=== PATIENT | male | born 1945 | race Caucasian/White ===

== ENCOUNTER 2017-07-19 05:58 | Inpatient (IN) | payer MEDICARE, OTHER ==
[2017-07-19] MEDS ORDERED: Lidocaine 1%/Sod Bicarbonate in NS 8.4% 1 ML Syringe IV PRN (06:00)
[2017-07-19] MEDS ORDERED: Sodium Chloride 0.9% 10 ML Syringe FLUSH PRN (06:00)
[2017-07-19] MEDS ORDERED: Lactated Ringers 1,000 ML IV SCH ×2 (06:00→14:15)
--- NOTE | 2017-07-19 06:14 | PCM.PREANE ---
Preanesthetic Assessment - Anesthesia/Transfusion/Family Hx Anesthesia History: Prior Anesthesia Without Reaction (Colonoscopy only) Family History of Anesthesia Reaction: No Transfusion History: No Prior Transfusion(s) Intubation History: Unknown - Review of Systems General: No Symptoms Pulmonary: No Symptoms (SUSU uses BiPAP, quit smoking 10/2015), Cough Cardiovascular: No Symptoms (History of HTN, history of heart murmur with echocardiogram results noted.), Dyspnea on Exertion Gastrointestinal: No Symptoms (Hiatal hernia, GERD) Neurological: No Symptoms (History of TIA 2 yrs ago.) Other: Reports: None (History of anemia from GI blood loss), Sinus Problem - Physical Assessment NPO Status Date: 07/18/17 NPO Status Time: 21:00 Pulse: 86 O2 Sat by Pulse Oximetry: 95 Respiratory Rate: 20 Blood Pressure: 158/94 Temperature: 37.7 C Height: 1.8 m Weight: 113.852 kg ASA Class: 3 Mental Status: Alert & Oriented x3 Airway Class: Mallampati = 2 Dentition: Reports: Normal Dentition, [place](s), Caries Thyro-Mental Finger Breadths: 3 Mouth Opening Finger Breadths: 3 ROM/Head Extension: Full Lungs: Clear to Auscultation, Normal Respiratory Effort Cardiovascular: Regular Rate, Regular Rhythm (Murmur) - Lab Values: Lab values reviewed and noted and within acceptable ranges to proceed with scheduled procedure. MRSA negative. - Imaging/EKG Impressions: EKG: SR =62, left atrial enlargement, minimal ST elevation , anterior leads CXR: No acute abnormality Echo: EF greater than 75%, mild aortic regurgitation - Allergies Allergies/Adverse Reactions: Allergies Allergy/AdvReac Type Severity Reaction Status Date / Time Penicillins Allergy Rash Verified 11/03/15 08:44 - Anesthesia Plan Pre-Op Medication Ordered: None - Acknowledgements Anesthesia Type Planned: Spinal Pt an Appropriate Candidate for the Planned Anesthesia: Yes Alternatives and Risks of Anesthesia Discussed w Pt/Guardian: Yes Pt/Guardian Understands and Agrees with Anesthesia Plan: Yes PreAnesthesia Questionnaire Other HEENT History: glasses for reading Cardiovascular History: Reports: Heart Murmur, Hypertension Other Cardiovascular History: aortic regurgitation Respiratory History: Reports: Sleep Apnea Other Respiratory History: uses bipap Gastrointestinal History: Reports: Diverticulosis, GI Bleed, Hiatal Hernia, Other (See Below) Other Gastrointestinal History: blood in stool Musculoskeletal History: Reports: Arthritis Neurological History: Reports: Other (See Below) Other Neuro History: 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 , tia's Endocrine/Metabolic History: Reports: Obesity/BMI 30+ Dermatologic History: Reports: Psoriasis - Past Surgical History GI Surgical History: Reports: Colonoscopy, EGD Other GI Surgeries/Procedures: colon polyp, Male Surgical History: Reports: None Other Endocrine Surgeries/Procedures: pancreatic calcification - SUBSTANCE USE Smoking Status *Q: Former Smoker Tobacco Use Within Last Twelve Months: Pipe Recreational Drug Use History: No - HOME MEDS Home Medications: Home Meds Hydrochlorothiazide 25 mg PO DAILY 11/03/15 [History] Aspirin [Halfprin] 81 mg PO DAILY #30 tab.ec 11/04/15 [Rx] Clopidogrel [Plavix] 75 mg PO DAILY #30 tablet 11/04/15 [Rx] Rosuvastatin [Crestor] 10 mg PO BEDTIME #30 tablet 11/04/15 [Rx] - CURRENT (IN HOUSE) MEDS Current Meds: Current Medications Lactated Ringer's (Ringers, Lactated) 1,000 mls @ 125 mls/hr IV ASDIRECTED JOSE ARMANDO Lidocaine/Sodium Bicarbonate (Buffered Lidocaine 1% In Ns 8.4%) 0.25 ml IV ONETIME PRN PRN Reason: Prior to IV Start Sodium Chloride (Saline Flush) 10 ml FLUSH ASDIRECTED PRN PRN Reason: Keep Vein Open
[2017-07-19] MEDS ORDERED: Naloxone 0.4 MG/ML SDV IVPUSH PRN (06:16)
[2017-07-19] MEDS ORDERED: diphenhydrAMINE 50 MG/ML SDV IVPUSH PRN ×2 (06:16→07:33)
[2017-07-19] MEDS ORDERED: Magnesium Hydroxide 400 MG/5 ML Susp 30 ML Cup PO PRN (06:16)
[2017-07-19] MEDS ORDERED: Morphine 2 MG/ML Syringe IVPUSH PRN (06:16)
[2017-07-19] MEDS ORDERED: Sennosides 8.6 MG Tab PO PRN (06:16)
[2017-07-19] MEDS ORDERED: Cyclobenzaprine 10 MG Tab PO PRN (06:16)
[2017-07-19] MEDS ORDERED: Ondansetron 4 MG/2 ML SDV IVPUSH PRN ×2 (06:16→07:33)
[2017-07-19] MEDS ORDERED: Acetaminophen/oxyCODONE 325-5 MG Tab PO PRN (06:16)
[2017-07-19] MEDS ORDERED: Bisacodyl 5 MG Tab PO PRN (06:16)
[2017-07-19] MEDS ORDERED: ceFAZolin 2 GM in Premix Bag 1 BAG IV SCH (06:30)
[2017-07-19] MEDS ORDERED: Morphine PF 10 MG/10 ML SDV ONE (07:01)
[2017-07-19] MEDS ORDERED: ceFAZolin 1 GM Vial ONE (07:14)
[2017-07-19] MEDS ORDERED: Propofol 200 MG/20 ML SDV ONE ×2 (07:14→08:28)
[2017-07-19] MEDS ORDERED: Phenylephrine/Normal Saline 100 MCG/ML 10 ML Syringe ONE (07:14)
[2017-07-19] MEDS ORDERED: Ondansetron 4 MG/2 ML SDV ONE (07:14)
[2017-07-19] MEDS ORDERED: Midazolam 1 MG/ML 2 ML SDV ONE (07:15)
[2017-07-19] MEDS ORDERED: fentaNYL 100 MCG/2 ML SDV ONE (07:16)
[2017-07-19] MEDS ORDERED: Ketamine 500 mg/10 ML MDV ONE (07:16)
[2017-07-19] MEDS ORDERED: ePHEDrine 50 MG/ML SDV IVPUSH PRN (07:33)
[2017-07-19] MEDS ORDERED: fentaNYL 100 MCG/2 ML SDV IVPUSH PRN (07:33)
[2017-07-19] MEDS ORDERED: HYDROmorphone 0.5 MG/0.5 ML Syringe IVPUSH PRN (07:33)
[2017-07-19] MEDS ORDERED: Phenylephrine 1 MG in Sodium Chloride 0.9% 10 ML IV SCH (07:45)
[2017-07-19] MEDS ORDERED: Lactated Ringers 1,000 ML ONE ×2 (07:54)
[2017-07-19] MEDS: ceFAZolin 1 GM Vial ONE ×2 (08:19→08:36)
[2017-07-19] MEDS: Iodine/Sodium Iodide 2% Tincture 30 ML Bottle ONE ×2 (08:19→08:32)
[2017-07-19] MEDS: Morphine 8 MG, EPINEPHrine 0.3 MG, Cefuroxime 750 MG, Ketorolac 30 MG, Sodium Chloride ... ONE ×10 (08:20→08:40)
[2017-07-19] MEDS: Bupivacaine 0.25% 30 ML SDV ONE ×4 (08:20→09:12)
[2017-07-19] MEDS: Triamcinolone Acetonide 40 MG/ML 1 ML MDV ONE ×2 (08:24→09:12)
[2017-07-19] MEDS: Vancomycin 1 GM SDV ONE ×2 (08:24→08:43)
[2017-07-19] MEDS ORDERED: ePHEDrine/Normal Saline 25 MG/5 ML Syringe ONE (08:42)
--- NOTE | 2017-07-19 09:32 | PCM.POSTAN ---
POST ANESTHESIA ASSESSMENT - MENTAL STATUS Mental Status: Alert - VITAL SIGNS Pulse Rate: 78 SaO2: 95 Resp Rate: 12 Blood Pressure: 106/59 Temperature: 36.6 C - RESPIRATORY Respiratory Status: Respiratory Rate WNL, Airway Patent, O2 Saturation Stable, Supplemental Oxygen - CARDIOVASCULAR CV Status: Pulse Rate WNL, Blood Pressure Stable - GASTROINTESTINAL GI Status: No Symptoms - POST OP HYDRATION Hydration Status: Adequate & Stable
--- NOTE | 2017-07-19 10:26 | CR ---
Right knee: AP and lateral views of the right knee were obtained. Comparison: No previous right knee exam. Knee prosthesis is seen. Components are aligned. Soft tissue air is noted from the surgical procedure. Underlying bony structures are intact. Impression: 1. Satisfactory radiographic appearance of recently placed right knee prosthesis. Diagnostic code #2
[2017-07-19] MEDS ORDERED: RANITIDINE HCL PO PRN (10:43)
[2017-07-19] MEDS: Famotidine 20 MG Tab PO SCH ×2 (11:51→17:59)
--- NOTE | 2017-07-19 13:44 | PCM.CONSN ---
- General Info Date of Service: 07/19/17 Admission Dx/Problem (Free Text): Abe is a 71-year-old male status post right total knee arthroplasty with Dr. Montano this morning. He is doing well thus far. He has no complaints of pain. No nausea. He is tired and has been sleeping since arriving back to the floor. No other complaints or concerns. Past medical history significant for hypertension heart murmur by history recent echo shows ejection fraction greater than 75% with mild aortic regurgitation, os obstructive sleep apnea and uses a BiPAP, GERD with hiatal hernia, history of TIA 2 years ago on Plavix, history of GI bleed with anemia, history of tobacco use quit smoking in October 2015. Hospitalist service is consulted for postoperative medical management. Patient is full CODE STATUS Functional Status: Reports: Pain Controlled, Tolerating Diet, Urinating (kohler cath), Incentive Spirometry. Denies: Ambulating (not yet) - Review of Systems General: Reports: No Symptoms HEENT: Reports: No Symptoms Pulmonary: Reports: No Symptoms Cardiovascular: Reports: No Symptoms Gastrointestinal: Reports: No Symptoms Genitourinary: Reports: No Symptoms Musculoskeletal: Reports: No Symptoms Skin: Reports: No Symptoms Neurological: Reports: No Symptoms Psychiatric: Reports: No Symptoms - Patient Data Vitals - Most Recent: Last Vital Signs Temp 98.0 F 07/19/17 10:23 Pulse 75 07/19/17 12:02 Resp 13 07/19/17 10:23 BP 130/74 07/19/17 12:02 Pulse Ox 93 L 07/19/17 12:02 Weight - Most Recent: 251 lb I&O - Last 24 Hours: Intake & Output 07/18/17 07/19/17 07/19/17 22:59 06:59 14:59 Intake Total 150 Output Total 200 Balance -50 Lab Results Last 24 Hours: Laboratory Results - last 24 hr 07/19/17 07/19/17 07/19/17 Range/Units 06:29 06:29 06:29 Hgb 12.9 L (13.7-17.5) gm/L PT 10.2 (8.0-13.0) SECONDS INR 0.94 APTT 27 (22-36) SECONDS Med Orders - Current: Current Medications Aspirin (Ecotrin) 325 mg PO BID JOSE ARMANDO Bisacodyl (Dulcolax) 5 mg PO DAILY PRN PRN Reason: Constipation Cholecalciferol (Vitamin D3) 5,000 units PO DAILY [facility] Clopidogrel Bisulfate (Plavix) 75 mg PO DAILY [facility] Cyclobenzaprine HCl (Flexeril) 10 mg PO TID PRN PRN Reason: Spasms Diphenhydramine HCl (Benadryl) 25 mg IVPUSH Q4H PRN PRN Reason: Nausea Diphenhydramine HCl (Benadryl) 25 mg IVPUSH Q6H PRN PRN Reason: pruritis Stop: 07/19/17 18:00 Docusate Sodium (Colace) 100 mg PO BID [facility] Famotidine (Pepcid) 20 mg PO Q12H [facility] [place] Last Admin: 07/19/17 11:51 Dose: Not Given Ferrous Sulfate (Ferrous Sulfate) 325 mg PO DAILY [facility] [place] Hydrochlorothiazide (Hydrochlorothiazide) 25 mg PO DAILY [facility] [place] Hydromorphone HCl (Dilaudid) 0.5 mg IVPUSH Q15M PRN PRN Reason: severe pain Stop: 07/19/17 18:00 Cefazolin Sodium/Dextrose 2 gm (/ Premix) 50 mls @ 100 mls/hr IV Q8H [facility] [place] Stop: 07/20/17 07:44 Magnesium Hydroxide (Milk Of Magnesia) 30 ml PO BID PRN PRN Reason: Constipation Morphine Sulfate (Morphine) 2 mg IVPUSH Q2H PRN PRN Reason: Breakthrough Pain Naloxone HCl (Narcan) 0.1 mg IVPUSH Q5M PRN PRN Reason: Oversedation Non-Formulary Medication (Mesalamine) 1,000 mg PO QID [facility] [place] Ondansetron HCl (Zofran) 4 mg IVPUSH Q6H PRN PRN Reason: Nausea/Vomiting Ondansetron HCl (Zofran) 4 mg IVPUSH ONETIME PRN PRN Reason: Nausea/Vomiting Stop: 07/19/17 18:00 Oxycodone/Acetaminophen (Percocet 325-5 Mg) 1 - 2 tab PO Q4H PRN PRN Reason: Pain Senna (Senna) 8.6 mg PO BID PRN PRN Reason: Constipation Sodium Chloride (Saline Flush) 10 ml FLUSH ASDIRECTED PRN PRN Reason: Keep Vein Open Discontinued Medications Bupivacaine HCl (Marcaine 0.25%) Confirm Administered Dose 30 ml .ROUTE .STK- MED ONE Stop: 07/19/17 06:27 Last Admin: 07/19/17 09:12 Dose: 4 ml Cefazolin Sodium (Ancef) Confirm Administered Dose 2 gm .ROUTE .STK-MED ONE Stop: 07/19/17 06:31 Last Admin: 07/19/17 08:36 Dose: 2 gm Cefazolin Sodium (Ancef) Confirm Administered Dose 2 gm .ROUTE .STK-MED ONE Stop: 07/19/17 07:15 Morphine Sulfate 8 mg/Epinephrine HCl 0.3 mg/Cefuroxime Sodium 750 mg/Ketorolac Tromethamine 30 mg/Sodium Chloride 27.9 ml 0 mg .XX ONETIME ONE Stop: 07/19/17 06:16 Last Admin: 07/19/17 08:40 Dose: 788.3 mg Ephedrine Sulfate (Ephedrine Sulfate) 5 mg IVPUSH ASDIRECTED PRN PRN Reason: Hypotension Stop: 07/19/17 18:00 Ephedrine Sulfate (Ephedrine In Ns) Confirm Administered Dose 25 mg .ROUTE .STK- MED ONE Stop: 07/19/17 08:43 Fentanyl (Sublimaze) Confirm Administered Dose 100 mcg .ROUTE .STK-MED ONE Stop: 07/19/17 07:17 Fentanyl (Sublimaze) 50 mcg IVPUSH Q5M PRN PRN Reason: Pain Stop: 07/19/17 18:00 Lactated Ringer's (Ringers, Lactated) 1,000 mls @ 125 mls/hr IV ASDIRECTED [facility] [place] Last Admin: 07/19/17 06:25 Dose: 125 mls/hr Cefazolin Sodium/Dextrose 2 gm (/ Premix) 50 mls @ 100 mls/hr IV Q8H [facility] [place] Stop: 07/19/17 22:59 Last Admin: 07/19/17 11:52 Dose: Not Given Lidocaine HCl (Xylocaine-Mpf 1%) Confirm Administered Dose 10 mls @ as directed .ROUTE .STK-MED ONE Stop: 07/19/17 07:15 Phenylephrine HCl 1 mg/ Sodium (Chloride) 10.1 mls @ 1 mls/sec IV TITRATE JOSE ARMANDO PRN Reason: Protocol Stop: 07/19/17 18:00 Lactated Ringer's (Ringers, Lactated) Confirm Administered Dose 1,000 mls @ as directed .ROUTE .STK-MED ONE Stop: 07/19/17 07:55 Lactated Ringer's (Ringers, Lactated) Confirm Administered Dose 1,000 mls @ as directed .ROUTE .STK-MED ONE Stop: 07/19/17 07:55 Iodine (Iodine 2% Mild Tincture) Confirm Administered Dose 30 ml .ROUTE .STK- MED ONE Stop: 07/19/17 06:30 Last Admin: 07/19/17 08:32 Dose: 18 ml Ketamine HCl (Ketalar) Confirm Administered Dose 500 mg .ROUTE .STK-MED ONE Stop: 07/19/17 07:17 Lidocaine/Sodium Bicarbonate (Buffered Lidocaine 1% In Ns 8.4%) 0.25 ml IV ONETIME PRN PRN Reason: Prior to IV Start Last Admin: 07/19/17 06:24 Dose: 0.25 ml Midazolam HCl (Versed 1 Mg/Ml) Confirm Administered Dose 2 mg .ROUTE .STK-MED ONE Stop: 07/19/17 07:16 Morphine Sulfate (Duramorph Pf) Confirm Administered Dose 10 mg .ROUTE .STK-MED ONE Stop: 07/19/17 07:02 Non-Formulary Medication (Cholecalciferol (Vitamin D3) [Vitamin D]) 1 tab PO DAILY JOSE ARMANDO Non-Formulary Medication (Ranitidine Hcl) 1 tab PO ASDIRECTED PRN PRN Reason: Heartburn Ondansetron HCl (Zofran) Confirm Administered Dose 4 mg .ROUTE .STK-MED ONE Stop: 07/19/17 07:15 Phenylephrine HCl (Phenylephrine In Ns 100 Mcg/Ml) Confirm Administered Dose 1 mg .ROUTE .STK-MED ONE Stop: 07/19/17 07:15 Propofol (Diprivan 20 Ml) Confirm Administered Dose 400 mg .ROUTE .STK-MED ONE Stop: 07/19/17 07:15 Propofol (Diprivan 20 Ml) Confirm Administered Dose 200 mg .ROUTE .STK-MED ONE Stop: 07/19/17 08:29 Tranexamic Acid (Cyklokapron) Confirm Administered Dose 1,000 mg .ROUTE .STK- MED ONE Stop: 07/19/17 06:30 Last Admin: 07/19/17 08:55 Dose: 1,000 mg Triamcinolone Acetonide (Kenalog-40) Confirm Administered Dose 80 mg .ROUTE .STK -MED ONE Stop: 07/19/17 06:38 Last Admin: 07/19/17 09:12 Dose: 80 mg Vancomycin HCl (Vancomycin) Confirm Administered Dose 1 gm .ROUTE .STK-MED ONE Stop: 07/19/17 06:30 Last Admin: 07/19/17 08:43 Dose: 1 gm - Exam Quality Assessment: DVT Prophylaxis General: Alert, Oriented, Cooperative, No Acute Distress HEENT: Pupils Equal, EOMI, Mucous Membr. Moist/[place] Neck: Supple Lungs: Clear to Auscultation, Normal Respiratory Effort Cardiovascular: Regular Rate, Regular Rhythm GI/Abdominal Exam: Normal Bowel Sounds, Soft, Non-Tender (Male) Exam: Deferred Extremities: Normal Capillary Refill, Other (meron wrap to rt LE; CMS + and = bilat, slight decreased sensation bilaterally d/t spinal still in effect) Peripheral Pulses: 2+: Dorsalis Pedis (L), Dorsalis Pedis (R) Neurological: No New Focal Deficit Psy/Mental Status: Alert, Normal Affect, Normal Mood Consult PN Assessment/Plan POD#: 0 Procedures: Procedures ASSAY OF TROPONIN QUANT (11/03/15) C DIFF AMPLIFIED PROBE (11/06/16) C-REACTIVE PROTEIN (11/04/16) COMPLETE CBC W/AUTO DIFF WBC (11/04/16) COMPREHEN METABOLIC PANEL (11/04/16) CRYPTOSPORIDIUM AG IA (11/06/16) EXTRACRANIAL BILAT STUDY (11/03/15) GIARDIA AG IA (11/06/16) HEPATOBIL SYST IMAGE W/DRUG (01/21/16) LACTOFERRIN FECAL (QUAL) (11/06/16) LIPID PANEL (11/03/15) MR-STAPH DNA AMP PROBE (07/05/17) OT EVALUATION (11/03/15) PT EVALUATION (11/03/15) ROUTINE VENIPUNCTURE (11/04/16) SPECIMEN FAT STAIN (11/06/16) STOOL CULTR AEROBIC BACT EA (11/06/16) TB TEST CELL IMMUN MEASURE (01/02/16) US EXAM ABDO BACK WALL COMP (11/03/15) (1) S/P total knee arthroplasty SNOMED Code(s): 1696105926972, 1783898440735 Code(s): Z96.659 - PRESENCE OF UNSPECIFIED ARTIFICIAL KNEE JOINT Priority: High Current Visit: Yes Qualifiers: Laterality: right Qualified Code(s): Z96.651 - Presence of right artificial knee joint (2) Osteoarthritis SNOMED Code(s): 076956117 Code(s): M19.90 - UNSPECIFIED OSTEOARTHRITIS, UNSPECIFIED SITE Priority: High Current Visit: Yes Qualifiers: Osteoarthritis location: knee Osteoarthritis type: primary Laterality: right Qualified Code(s): M17.11 - Unilateral primary osteoarthritis, right knee (3) HTN (hypertension) SNOMED Code(s): 17997454 Code(s): I10 - ESSENTIAL (PRIMARY) HYPERTENSION Priority: Medium Current Visit: Yes Qualifiers: Hypertension type: essential hypertension Qualified Code(s): I10 - Essential (primary) hypertension (4) SUSU treated with BiPAP SNOMED Code(s): 31018353 Code(s): G47.33 - OBSTRUCTIVE SLEEP APNEA (ADULT) (PEDIATRIC) Priority: Medium Current Visit: Yes (5) GERD (gastroesophageal reflux disease) SNOMED Code(s): 255005066 Code(s): K21.9 - GASTRO-ESOPHAGEAL REFLUX DISEASE WITHOUT ESOPHAGITIS Priority: Medium Current Visit: No Qualifiers: Esophagitis presence: esophagitis presence not specified Qualified Code(s) : K21.9 - Gastro-esophageal reflux disease without esophagitis (6) Heart murmur SNOMED Code(s): 28013302 Code(s): R01.1 - CARDIAC MURMUR, UNSPECIFIED Priority: Medium Current Visit: No (7) History of GI bleed SNOMED Code(s): 516996750 Code(s): Z87.19 - PERSONAL HISTORY OF OTHER DISEASES OF THE DIGESTIVE SYSTEM Priority: Medium Current Visit: No (8) Hx-TIA (transient ischemic attack) SNOMED Code(s): 959109532 Code(s): Z86.73 - PRSNL HX OF TIA (TIA), AND CEREB INFRC W/O RESID DEFICITS Priority: Medium Current Visit: No (9) History of tobacco use SNOMED Code(s): 1563535126614 Code(s): Z87.891 - PERSONAL HISTORY OF NICOTINE DEPENDENCE Priority: Medium Current Visit: No (10) Psoriasis SNOMED Code(s): 2389322 Code(s): L40.9 - PSORIASIS, UNSPECIFIED Priority: Medium Current Visit: No Problem List Initiated/Reviewed/Updated: Yes Plan: I/P: S/P total knee arthroplasty, POD # 0, Dr. Montano - Pain management and DVT prophylax - PT/OT - RT/IS - Hgb preoperatively is 12.9. We'll follow postoperative labs Chronic conditions: Hypertension, continue home meds, stable Obstructive sleep apnea will use home BiPAP History of heart murmur recent evaluation with echo see history of present illness GERD with hiatal hernia history GI prophylaxis with Pepcid twice a day History of anemia with GI bleed, GI prophylax as above History of TIA 2 years ago, on Plavix will plan to continue Plavix starting tomorrow morning History of tobacco use quit in 2016 Other: GI Prophylax CM/SW for DC planning Patient is full Code status. Chart reviewed- reviewed anesthesia notes. Time of consult: [address] Montano of consult. Thank you for allowing us to participate in this patient's POC.
[2017-07-19] MEDS: ceFAZolin 2 GM in Premix Bag 1 BAG IV SCH ×2 (15:08→23:10)
[2017-07-19] MEDS: MESALAMINE 500 MG PO SCH ×2 (17:48→20:37)
[2017-07-19] MEDS: Docusate Sodium 100 MG Cap PO SCH (20:38)
[2017-07-20] MEDS: Famotidine 20 MG Tab PO SCH (08:15)
[2017-07-20] MEDS: Docusate Sodium 100 MG Cap PO SCH (08:16)
[2017-07-20] MEDS: MESALAMINE 500 MG PO SCH ×2 (08:18→12:32)
[2017-07-20] MEDS: ceFAZolin 2 GM in Premix Bag 1 BAG IV SCH (08:18)
[2017-07-20] MEDS ORDERED: HYDROCHLOROTHIAZIDE 25 MG PO SCH (09:00)
[2017-07-20] MEDS ORDERED: CHOLECALCIFEROL PO SCH ×2 (09:00)
[2017-07-20] MEDS ORDERED: Ferrous Sulfate 325 MG Tab PO SCH (09:00)
[2017-07-20] MEDS ORDERED: Aspirin 325 MG Tab.EC PO SCH (09:00)
[2017-07-20] MEDS ORDERED: CLOPIDOGREL 75 MG PO SCH (09:00)
[2017-07-20] MEDS ORDERED: Acetaminophen 325 MG Tab PO PRN (09:06)
[2017-07-20 09:14] VITALS: BP 111/62
--- NOTE | 2017-07-20 12:32 | PCM.CONSN ---
- General Info Date of Service: 07/20/17 Admission Dx/Problem (Free Text): S/P Rt TKA with Dr. Montano, POD #1 Doing well, no pain, no n/v, tolerating meals. Voiding. Ready for DC home today. Functional Status: Reports: Pain Controlled, Tolerating Diet, Ambulating, Urinating, Incentive Spirometry. Denies: New Symptoms - Review of Systems General: Reports: No Symptoms HEENT: Reports: No Symptoms Pulmonary: Reports: No Symptoms Cardiovascular: Reports: No Symptoms Gastrointestinal: Reports: No Symptoms Genitourinary: Reports: No Symptoms Musculoskeletal: Reports: Leg Pain Skin: Reports: No Symptoms Neurological: Reports: No Symptoms Psychiatric: Reports: No Symptoms - Patient Data Vitals - Most Recent: Last Vital Signs Temp 99.3 F 07/20/17 11:12 Pulse 99 07/20/17 08:18 Resp 16 07/20/17 08:18 BP 111/62 07/20/17 08:18 Pulse Ox 89 L 07/20/17 08:18 Weight - Most Recent: 251 lb I&O - Last 24 Hours: Intake & Output 07/19/17 07/20/17 07/20/17 22:59 06:59 14:59 Intake Total 1090 170 Output Total 200 Balance 890 170 Lab Results Last 24 Hours: Laboratory Results - last 24 hr 07/20/17 07/20/17 Range/Units 07:00 07:00 WBC 16.39 H (4.23-9.07) K/mm3 RBC 4.32 L (4.63-6.08) M/mm3 Hgb 11.2 L (13.7-17.5) gm/L Hct 35.2 L (40.1-51.0) % MCV 81.5 (79.0-92.2) fl MCH 25.9 (25.7-32.2) pg MCHC 31.8 L (32.2-35.5) g/dl RDW Std Deviation 57.0 H (35.1-43.9) fL Plt Count 265 (163-337) K/mm3 MPV 10.3 (9.4-12.3) fl Sodium 141 (136-145) mEq/L Potassium 4.0 (3.5-5.1) mEq/L Chloride 105 (98-107) mEq/L Carbon Dioxide 25 (21-32) mEq/L Anion Gap 15.0 (5-15) BUN 27 H (7-18) mg/dL Creatinine 1.6 H (0.7-1.3) mg/dL Est Cr Clr Drug Dosing 45.76 mL/min Estimated GFR (MDRD) 43 (>60) mL/min BUN/Creatinine Ratio 16.9 (14-18) Glucose 147 H (80-115) mg/dL Calcium 8.5 (8.5-10.1) mg/dL Total Bilirubin 0.5 (0.2-1.0) mg/dL AST 19 (15-37) U/L ALT 32 (16-63) U/L Alkaline Phosphatase 39 L (46-116) U/L Total Protein 6.2 L (6.4-8.2) g/dl Albumin 3.0 L (3.4-5.0) g/dl Globulin 3.2 gm/dL Albumin/Globulin Ratio 0.9 L (1-2) Med Orders - Current: Current Medications Acetaminophen (Tylenol) 975 mg PO Q8H PRN PRN Reason: Pain Last Admin: 07/20/17 09:52 Dose: 975 mg Aspirin (Ecotrin) 325 mg PO BID [facility] Last Admin: 07/20/17 08:15 Dose: 325 mg Bisacodyl (Dulcolax) 5 mg PO DAILY PRN PRN Reason: Constipation Cyclobenzaprine HCl (Flexeril) 10 mg PO TID PRN PRN Reason: Spasms Diphenhydramine HCl (Benadryl) 25 mg IVPUSH Q4H PRN PRN Reason: Nausea Docusate Sodium (Colace) 100 mg PO BID [facility] Last Admin: 07/20/17 08:16 Dose: 100 mg Famotidine (Pepcid) 20 mg PO Q12H [facility] Last Admin: 07/20/17 08:15 Dose: 20 mg Ferrous Sulfate (Ferrous Sulfate) 325 mg PO DAILY [facility] Last Admin: 07/20/17 08:16 Dose: 325 mg Lactated Ringer's (Ringers, Lactated) 1,000 mls @ 500 mls/hr IV ASDIRECTED [facility] Last Admin: 07/19/17 14:33 Dose: 500 mls/hr Magnesium Hydroxide (Milk Of Magnesia) 30 ml PO BID PRN PRN Reason: Constipation Morphine Sulfate (Morphine) 2 mg IVPUSH Q2H PRN PRN Reason: Breakthrough Pain Naloxone HCl (Narcan) 0.1 mg IVPUSH Q5M PRN PRN Reason: Oversedation Ondansetron HCl (Zofran) 4 mg IVPUSH Q6H PRN PRN Reason: Nausea/Vomiting Oxycodone/Acetaminophen (Percocet 325-5 Mg) 1 - 2 tab PO Q4H PRN PRN Reason: Pain Clopidrogrel 75mg ( (Patient's Own Med)) 1 each PO DAILY [facility] Last Admin: 07/20/17 08:18 Dose: 1 each Hydrochlorothiazide 25mg (Patient's Own Med) 1 each PO DAILY [facility] Last Admin: 07/20/17 08:18 Dose: 1 each Mesalamine (Pentasa) (500mg) 2 each PO QID [facility] Last Admin: 07/20/17 08:18 Dose: 2 each Cholecalciferol 5000units/Capsule ( Patients Own) 1 each PO DAILY [facility] Last Admin: 07/20/17 08:18 Dose: 1 each Senna (Senna) 8.6 mg PO BID PRN PRN Reason: Constipation Sodium Chloride (Saline Flush) 10 ml FLUSH ASDIRECTED PRN PRN Reason: Keep Vein Open Discontinued Medications Bupivacaine HCl (Marcaine 0.25%) Confirm Administered Dose 30 ml .ROUTE .STK- MED ONE Stop: 07/19/17 06:27 Last Admin: 07/19/17 09:12 Dose: 4 ml Cefazolin Sodium (Ancef) Confirm Administered Dose 2 gm .ROUTE .STK-MED ONE Stop: 07/19/17 06:31 Last Admin: 07/19/17 08:36 Dose: 2 gm Cefazolin Sodium (Ancef) Confirm Administered Dose 2 gm .ROUTE .STK-MED ONE Stop: 07/19/17 07:15 Morphine Sulfate 8 mg/Epinephrine HCl 0.3 mg/Cefuroxime Sodium 750 mg/Ketorolac Tromethamine 30 mg/Sodium Chloride 27.9 ml 0 mg .XX ONETIME ONE Stop: 07/19/17 06:16 Last Admin: 07/19/17 08:40 Dose: 788.3 mg Diphenhydramine HCl (Benadryl) 25 mg IVPUSH Q6H PRN PRN Reason: pruritis Stop: 07/19/17 18:00 Ephedrine Sulfate (Ephedrine Sulfate) 5 mg IVPUSH ASDIRECTED PRN PRN Reason: Hypotension Stop: 07/19/17 18:00 Ephedrine Sulfate (Ephedrine In Ns) Confirm Administered Dose 25 mg .ROUTE .STK- MED ONE Stop: 07/19/17 08:43 Fentanyl (Sublimaze) Confirm Administered Dose 100 mcg .ROUTE .STK-MED ONE Stop: 07/19/17 07:17 Fentanyl (Sublimaze) 50 mcg IVPUSH Q5M PRN PRN Reason: Pain Stop: 07/19/17 18:00 Hydromorphone HCl (Dilaudid) 0.5 mg IVPUSH Q15M PRN PRN Reason: severe pain Stop: 07/19/17 18:00 Lactated Ringer's (Ringers, Lactated) 1,000 mls @ 125 mls/hr IV ASDIRECTED [facility] Last Admin: 07/19/17 06:25 Dose: 125 mls/hr Cefazolin Sodium/Dextrose 2 gm (/ Premix) 50 mls @ 100 mls/hr IV Q8H [facility] Stop: 07/19/17 22:59 Last Admin: 07/19/17 11:52 Dose: Not Given Lidocaine HCl (Xylocaine-Mpf 1%) Confirm Administered Dose 10 mls @ as directed .ROUTE .STK-MED ONE Stop: 07/19/17 07:15 Phenylephrine HCl 1 mg/ Sodium (Chloride) 10.1 mls @ 1 mls/sec IV TITRATE [facility] PRN Reason: Protocol Stop: 07/19/17 18:00 Lactated Ringer's (Ringers, Lactated) Confirm Administered Dose 1,000 mls @ as directed .ROUTE .STK-MED ONE Stop: 07/19/17 07:55 Lactated Ringer's (Ringers, Lactated) Confirm Administered Dose 1,000 mls @ as directed .ROUTE .STK-MED ONE Stop: 07/19/17 07:55 Cefazolin Sodium/Dextrose 2 gm (/ Premix) 50 mls @ 100 mls/hr IV Q8H [facility] Stop: 07/20/17 07:44 Last Admin: 07/20/17 08:18 Dose: 100 mls/hr Iodine (Iodine 2% Mild Tincture) Confirm Administered Dose 30 ml .ROUTE .STK- MED ONE Stop: 07/19/17 06:30 Last Admin: 07/19/17 08:32 Dose: 18 ml Ketamine HCl (Ketalar) Confirm Administered Dose 500 mg .ROUTE .STK-MED ONE Stop: 07/19/17 07:17 Lidocaine/Sodium Bicarbonate (Buffered Lidocaine 1% In Ns 8.4%) 0.25 ml IV ONETIME PRN PRN Reason: Prior to IV Start Last Admin: 07/19/17 06:24 Dose: 0.25 ml Midazolam HCl (Versed 1 Mg/Ml) Confirm Administered Dose 2 mg .ROUTE .STK-MED ONE Stop: 07/19/17 07:16 Morphine Sulfate (Duramorph Pf) Confirm Administered Dose 10 mg .ROUTE .STK-MED ONE Stop: 07/19/17 07:02 Non-Formulary Medication (Cholecalciferol (Vitamin D3) [Vitamin D]) 1 tab PO DAILY [facility] Non-Formulary Medication (Ranitidine Hcl) 1 tab PO ASDIRECTED PRN PRN Reason: Heartburn Ondansetron HCl (Zofran) Confirm Administered Dose 4 mg .ROUTE .STK-MED ONE Stop: 07/19/17 07:15 Ondansetron HCl (Zofran) 4 mg IVPUSH ONETIME PRN PRN Reason: Nausea/Vomiting Stop: 07/19/17 18:00 Phenylephrine HCl (Phenylephrine In Ns 100 Mcg/Ml) Confirm Administered Dose 1 mg .ROUTE .STK-MED ONE Stop: 07/19/17 07:15 Propofol (Diprivan 20 Ml) Confirm Administered Dose 400 mg .ROUTE .STK-MED ONE Stop: 07/19/17 07:15 Propofol (Diprivan 20 Ml) Confirm Administered Dose 200 mg .ROUTE .STK-MED ONE Stop: 07/19/17 08:29 Tranexamic Acid (Cyklokapron) Confirm Administered Dose 1,000 mg .ROUTE .STK- MED ONE Stop: 07/19/17 06:30 Last Admin: 07/19/17 08:55 Dose: 1,000 mg Triamcinolone Acetonide (Kenalog-40) Confirm Administered Dose 80 mg .ROUTE .STK -MED ONE Stop: 07/19/17 06:38 Last Admin: 07/19/17 09:12 Dose: 80 mg Vancomycin HCl (Vancomycin) Confirm Administered Dose 1 gm .ROUTE .STK-MED ONE Stop: 07/19/17 06:30 Last Admin: 07/19/17 08:43 Dose: 1 gm - Exam Quality Assessment: DVT Prophylaxis General: Alert, Oriented, Cooperative, No Acute Distress HEENT: Pupils Equal, EOMI, Mucous Membr. Moist/[place] Neck: Supple Lungs: Clear to Auscultation, Normal Respiratory Effort Cardiovascular: Regular Rate, Regular Rhythm, Murmurs (trade 2 systolic) GI/Abdominal Exam: Normal Bowel Sounds, Soft, Non-Tender (Male) Exam: Deferred Extremities: Other (CMS + and = distally to LE. Ice to rt knee, teds on.) Peripheral Pulses: 2+: Dorsalis Pedis (L), Dorsalis Pedis (R) Neurological: No New Focal Deficit Psy/Mental Status: Alert, Normal Affect, Normal Mood Consult PN Assessment/Plan POD#: 1 Procedures: Procedures ASSAY OF TROPONIN QUANT (11/03/15) C DIFF AMPLIFIED PROBE (11/06/16) C-REACTIVE PROTEIN (11/04/16) COMPLETE CBC W/AUTO DIFF WBC (11/04/16) COMPREHEN METABOLIC PANEL (11/04/16) CRYPTOSPORIDIUM AG IA (11/06/16) EXTRACRANIAL BILAT STUDY (11/03/15) GIARDIA AG IA (11/06/16) HEPATOBIL SYST IMAGE W/DRUG (01/21/16) LACTOFERRIN FECAL (QUAL) (11/06/16) LIPID PANEL (11/03/15) MR-STAPH DNA AMP PROBE (07/05/17) OT EVALUATION (11/03/15) PT EVALUATION (11/03/15) ROUTINE VENIPUNCTURE (11/04/16) SPECIMEN FAT STAIN (11/06/16) STOOL CULTR AEROBIC BACT EA (11/06/16) TB TEST CELL IMMUN MEASURE (01/02/16) US EXAM ABDO BACK WALL COMP (11/03/15) (1) S/P total knee arthroplasty SNOMED Code(s): 7616077177785, 8471097490198 Code(s): Z96.659 - PRESENCE OF UNSPECIFIED ARTIFICIAL KNEE JOINT Priority: High Current Visit: Yes Qualifiers: Laterality: right Qualified Code(s): Z96.651 - Presence of right artificial knee joint (2) Osteoarthritis SNOMED Code(s): 464937920 Code(s): M19.90 - UNSPECIFIED OSTEOARTHRITIS, UNSPECIFIED SITE Priority: High Current Visit: Yes Qualifiers: Osteoarthritis location: knee Osteoarthritis type: primary Laterality: right Qualified Code(s): M17.11 - Unilateral primary osteoarthritis, right knee (3) HTN (hypertension) SNOMED Code(s): 35291802 Code(s): I10 - ESSENTIAL (PRIMARY) HYPERTENSION Priority: Medium Current Visit: Yes Qualifiers: Hypertension type: essential hypertension Qualified Code(s): I10 - Essential (primary) hypertension (4) SUSU treated with BiPAP SNOMED Code(s): 02942108 Code(s): G47.33 - OBSTRUCTIVE SLEEP APNEA (ADULT) (PEDIATRIC) Priority: Medium Current Visit: Yes (5) GERD (gastroesophageal reflux disease) SNOMED Code(s): 768618733 Code(s): K21.9 - GASTRO-ESOPHAGEAL REFLUX DISEASE WITHOUT ESOPHAGITIS Priority: Medium Current Visit: No Qualifiers: Esophagitis presence: esophagitis presence not specified Qualified Code(s) : K21.9 - Gastro-esophageal reflux disease without esophagitis (6) Heart murmur SNOMED Code(s): 22782313 Code(s): R01.1 - CARDIAC MURMUR, UNSPECIFIED Priority: Medium Current Visit: No (7) History of GI bleed SNOMED Code(s): 853949796 Code(s): Z87.19 - PERSONAL HISTORY OF OTHER DISEASES OF THE DIGESTIVE SYSTEM Priority: Medium Current Visit: No (8) Hx-TIA (transient ischemic attack) SNOMED Code(s): 885874150 Code(s): Z86.73 - PRSNL HX OF TIA (TIA), AND CEREB INFRC W/O RESID DEFICITS Priority: Medium Current Visit: No (9) History of tobacco use SNOMED Code(s): 3199400397608 Code(s): Z87.891 - PERSONAL HISTORY OF NICOTINE DEPENDENCE Priority: Medium Current Visit: No (10) Psoriasis SNOMED Code(s): 7998706 Code(s): L40.9 - PSORIASIS, UNSPECIFIED Priority: Medium Current Visit: No Problem List Initiated/Reviewed/Updated: Yes My Orders Last 24 Hours: My Active Orders 07/19/17 14:15 Lactated Ringers [Ringers, Lactated] 1,000 ml IV ASDIRECTED 07/20/17 09:06 Acetaminophen [Tylenol] 975 mg PO Q8H PRN Plan: I/P: S/P total knee arthroplasty, POD # 1, Dr. Montano - Pain management and DVT prophylax - PT/OT - RT/IS - Hgb preoperatively is 11.2 Chronic conditions: Hypertension, continue home meds, stable Obstructive sleep apnea will use home BiPAP History of heart murmur recent evaluation with echo see history of present illness GERD with hiatal hernia history GI prophylaxis with Pepcid twice a day History of anemia with GI bleed, GI prophylax as above History of TIA 2 years ago, on Plavix will plan to continue Plavix starting tomorrow morning History of tobacco use quit in 2016 Other: GI Prophylax CM/SW for DC planning--Patient OK for DC from Hopsitalist standpoint today. Patient is full Code status.
--- NOTE | 2017-07-21 11:20 | PCM.SURGPN ---
- General Info Date of Service: 07/20/17 POD#: 1 Functional Status: Reports: Pain Controlled, Tolerating Diet, Ambulating, Urinating, Incentive Spirometry, Other (The pt states he has no pain. He has used Tylenol.) - Patient Data Vitals - Most Recent: Last Vital Signs Temp 99.3 F 07/20/17 11:12 Pulse 99 07/20/17 08:18 Resp 16 07/20/17 08:18 BP 111/62 07/20/17 08:18 Pulse Ox 89 L 07/20/17 08:18 Weight - Most Recent: 251 lb Med Orders - Current: Current Medications Discontinued Medications Acetaminophen (Tylenol) 975 mg PO Q8H PRN PRN Reason: Pain Last Admin: 07/20/17 09:52 Dose: 975 mg Aspirin (Ecotrin) 325 mg PO BID [facility] Last Admin: 07/20/17 08:15 Dose: 325 mg Bisacodyl (Dulcolax) 5 mg PO DAILY PRN PRN Reason: Constipation Bupivacaine HCl (Marcaine 0.25%) Confirm Administered Dose 30 ml .ROUTE .STK- MED ONE Stop: 07/19/17 06:27 Last Admin: 07/19/17 09:12 Dose: 4 ml Cefazolin Sodium (Ancef) Confirm Administered Dose 2 gm .ROUTE .STK-MED ONE Stop: 07/19/17 06:31 Last Admin: 07/19/17 08:36 Dose: 2 gm Cefazolin Sodium (Ancef) Confirm Administered Dose 2 gm .ROUTE .STK-MED ONE Stop: 07/19/17 07:15 Morphine Sulfate 8 mg/Epinephrine HCl 0.3 mg/Cefuroxime Sodium 750 mg/Ketorolac Tromethamine 30 mg/Sodium Chloride 27.9 ml 0 mg .XX ONETIME ONE Stop: 07/19/17 06:16 Last Admin: 07/19/17 08:40 Dose: 788.3 mg Cyclobenzaprine HCl (Flexeril) 10 mg PO TID PRN PRN Reason: Spasms Diphenhydramine HCl (Benadryl) 25 mg IVPUSH Q4H PRN PRN Reason: Nausea Diphenhydramine HCl (Benadryl) 25 mg IVPUSH Q6H PRN PRN Reason: pruritis Stop: 07/19/17 18:00 Docusate Sodium (Colace) 100 mg PO BID [facility] Last Admin: 07/20/17 08:16 Dose: 100 mg Ephedrine Sulfate (Ephedrine Sulfate) 5 mg IVPUSH ASDIRECTED PRN PRN Reason: Hypotension Stop: 07/19/17 18:00 Ephedrine Sulfate (Ephedrine In Ns) Confirm Administered Dose 25 mg .ROUTE .STK- MED ONE Stop: 07/19/17 08:43 Famotidine (Pepcid) 20 mg PO Q12H [facility] Last Admin: 07/20/17 08:15 Dose: 20 mg Fentanyl (Sublimaze) Confirm Administered Dose 100 mcg .ROUTE .STK-MED ONE Stop: 07/19/17 07:17 Fentanyl (Sublimaze) 50 mcg IVPUSH Q5M PRN PRN Reason: Pain Stop: 07/19/17 18:00 Ferrous Sulfate (Ferrous Sulfate) 325 mg PO DAILY [facility] Last Admin: 07/20/17 08:16 Dose: 325 mg Hydromorphone HCl (Dilaudid) 0.5 mg IVPUSH Q15M PRN PRN Reason: severe pain Stop: 07/19/17 18:00 Lactated Ringer's (Ringers, Lactated) 1,000 mls @ 125 mls/hr IV ASDIRECTED [facility] Last Admin: 07/19/17 06:25 Dose: 125 mls/hr Cefazolin Sodium/Dextrose 2 gm (/ Premix) 50 mls @ 100 mls/hr IV Q8H [facility] Stop: 07/19/17 22:59 Last Admin: 07/19/17 11:52 Dose: Not Given Lidocaine HCl (Xylocaine-Mpf 1%) Confirm Administered Dose 10 mls @ as directed .ROUTE .STK-MED ONE Stop: 07/19/17 07:15 Phenylephrine HCl 1 mg/ Sodium (Chloride) 10.1 mls @ 1 mls/sec IV TITRATE [facility] PRN Reason: Protocol Stop: 07/19/17 18:00 Lactated Ringer's (Ringers, Lactated) Confirm Administered Dose 1,000 mls @ as directed .ROUTE .STK-MED ONE Stop: 07/19/17 07:55 Lactated Ringer's (Ringers, Lactated) Confirm Administered Dose 1,000 mls @ as directed .ROUTE .STK-MED ONE Stop: 07/19/17 07:55 Cefazolin Sodium/Dextrose 2 gm (/ Premix) 50 mls @ 100 mls/hr IV Q8H [facility] Stop: 07/20/17 07:44 Last Admin: 07/20/17 08:18 Dose: 100 mls/hr Lactated Ringer's (Ringers, Lactated) 1,000 mls @ 500 mls/hr IV ASDIRECTED [facility] Last Admin: 07/19/17 14:33 Dose: 500 mls/hr Iodine (Iodine 2% Mild Tincture) Confirm Administered Dose 30 ml .ROUTE .STK- MED ONE Stop: 07/19/17 06:30 Last Admin: 07/19/17 08:32 Dose: 18 ml Ketamine HCl (Ketalar) Confirm Administered Dose 500 mg .ROUTE .STK-MED ONE Stop: 07/19/17 07:17 Lidocaine/Sodium Bicarbonate (Buffered Lidocaine 1% In Ns 8.4%) 0.25 ml IV ONETIME PRN PRN Reason: Prior to IV Start Last Admin: 07/19/17 06:24 Dose: 0.25 ml Magnesium Hydroxide (Milk Of Magnesia) 30 ml PO BID PRN PRN Reason: Constipation Midazolam HCl (Versed 1 Mg/Ml) Confirm Administered Dose 2 mg .ROUTE .STK-MED ONE Stop: 07/19/17 07:16 Morphine Sulfate (Morphine) 2 mg IVPUSH Q2H PRN PRN Reason: Breakthrough Pain Morphine Sulfate (Duramorph Pf) Confirm Administered Dose 10 mg .ROUTE .STK-MED ONE Stop: 07/19/17 07:02 Naloxone HCl (Narcan) 0.1 mg IVPUSH Q5M PRN PRN Reason: Oversedation Non-Formulary Medication (Cholecalciferol (Vitamin D3) [Vitamin D]) 1 tab PO DAILY [facility] Non-Formulary Medication (Ranitidine Hcl) 1 tab PO ASDIRECTED PRN PRN Reason: Heartburn Ondansetron HCl (Zofran) 4 mg IVPUSH Q6H PRN PRN Reason: Nausea/Vomiting Ondansetron HCl (Zofran) Confirm Administered Dose 4 mg .ROUTE .STK-MED ONE Stop: 07/19/17 07:15 Ondansetron HCl (Zofran) 4 mg IVPUSH ONETIME PRN PRN Reason: Nausea/Vomiting Stop: 07/19/17 18:00 Oxycodone/Acetaminophen (Percocet 325-5 Mg) 1 - 2 tab PO Q4H PRN PRN Reason: Pain Clopidrogrel 75mg ( (Patient's Own Med)) 1 each PO DAILY [facility] Last Admin: 07/20/17 08:18 Dose: 1 each Hydrochlorothiazide 25mg (Patient's Own Med) 1 each PO DAILY [facility] Last Admin: 07/20/17 08:18 Dose: 1 each Mesalamine (Pentasa) (500mg) 2 each PO QID [facility] Last Admin: 07/20/17 12:32 Dose: 2 each Cholecalciferol 5000units/Capsule ( Patients Own) 1 each PO DAILY [facility] Last Admin: 07/20/17 08:18 Dose: 1 each Phenylephrine HCl (Phenylephrine In Ns 100 Mcg/Ml) Confirm Administered Dose 1 mg .ROUTE .STK-MED ONE Stop: 07/19/17 07:15 Propofol (Diprivan 20 Ml) Confirm Administered Dose 400 mg .ROUTE .STK-MED ONE Stop: 07/19/17 07:15 Propofol (Diprivan 20 Ml) Confirm Administered Dose 200 mg .ROUTE .STK-MED ONE Stop: 07/19/17 08:29 Senna (Senna) 8.6 mg PO BID PRN PRN Reason: Constipation Sodium Chloride (Saline Flush) 10 ml FLUSH ASDIRECTED PRN PRN Reason: Keep Vein Open Tranexamic Acid (Cyklokapron) Confirm Administered Dose 1,000 mg .ROUTE .STK- MED ONE Stop: 07/19/17 06:30 Last Admin: 07/19/17 08:55 Dose: 1,000 mg Triamcinolone Acetonide (Kenalog-40) Confirm Administered Dose 80 mg .ROUTE .STK -MED ONE Stop: 07/19/17 06:38 Last Admin: 07/19/17 09:12 Dose: 80 mg Vancomycin HCl (Vancomycin) Confirm Administered Dose 1 gm .ROUTE .STK-MED ONE Stop: 07/19/17 06:30 Last Admin: 07/19/17 08:43 Dose: 1 gm - Exam Wound/Incisions: Dressing Dry and Intact General: Alert, Cooperative, No Acute Distress Lungs: Normal Respiratory Effort Extremities: Other (NVS intact for BLE. [place]'s negative for BLE. ) - Problem List Review Problem List Initiated/Reviewed/Updated: Yes - My Orders Last 24 Hours: Active Orders 24 hr Category Date Time Status Ready for Discharge [RC] PER UNIT ROUTINE Care 07/20/17 12:01 Active - Assessment Assessment (Free Text/Narrative):: POD#1 - right TKA with left knee cortisone injection - Plan Plan (Free Text/Narrative):: 1. Hgb 11.2. Pre-op Hgb 12.9. 2. ASA BID for VTE prophylaxis. This has been discussed with Dr. Kamara, the pt's PCP. 3. Discharge to home today. 4. Outpatient P.T. The pt's case was discussed with Dr. Montano.
--- NOTE | 2017-07-21 11:22 | PCM.DCSUM1 ---
Discharge Summary - Hospital Course Brief History: Abe is a 72 yo male who underwent right TKA with left knee cortisone injection with Dr. Montano on 07-19-2017. The procedure was completed under spinal anesthesia. The pt tolerated the procedure well and was admitted to the [facility] under Medical-Surgical status. Medical management was provided by the Hospitalist service. The pt's Hospital course was uneventful. The pt's Hgb on POD#1 was 11.2. On POD#1, 325mg ASA BID was initiated for VTE prophylaxis. SCDs and TEDs were also ordered. A Mepilex dressing was placed at the incision site at the time of surgery and remained clean and dry. The pt participated in P.T. and O.T. and progressed well. The pt was allowed to WBAT and used a FWW for mobility. On POD#1, the pt was deemed appropriate to discharge to home with his . - Discharge Data Discharge Date: 07/20/17 Discharge Disposition: Home, Self-Care 01 Condition: Good - Patient Summary/Data Consults: Consultations 07/19/17 06:16 Consult to Physician [CONS] Routine OT Evaluation and Treatment [CONS] Routine 07/19/17 06:22 PT Evaluation and Treatment [CONS] Routine - Patient Instructions Diet: Regular Diet as Tolerated Activity: Apply Ice Driving: Do Not Drive Showering/Bathing: May Shower Wound/Incision Care: Keep Operative Site/Wound Site Clean and Dry, Do NOT Change Dressing Notify Provider of: Fever, Increased Pain, Swelling and Redness, Drainage, Nausea and/or Vomiting Other/Special Instructions: Please get up and moving around every hour while awake. This helps to prevent blood clots. Please take 325mg aspirin twice daily - this also helps to prevent blood clots. The medication is being used for blood clot prevention and not for pain control, so please use the medication twice daily as directed. YOUR HEMOGLOBIN needs to be closely monitored so please have a follow-up with Dr. Kamara this week. Please wear the GARY hose during the day and you may remove them at night. Please schedule for P.T. Complete the P.T. exercises and stretches that were instructed in the Hospital. Please use the pain medication and muscle relaxant as needed. The medication may cause drowsiness and/or constipation. You could use a stool softener like docusate sodium or Colace 100mg twice daily and/or a laxative like Miralax daily for constipation. Contact your primary care provider for further instructions if you are constipated. Please schedule an appointment with your primary care provider for 'routine post-op care'. Use the incentive spirometer often. Please place ice to the knee often. Please elevate the limb to decrease swelling. Keep the Mepilex dressing in place until follow-up. Please call [phone] with questions or concerns. - Discharge Plan Prescriptions/Med Rec: Acetaminophen/oxyCODONE [Percocet 325-5 MG] 1 - 2 tab PO Q4H PRN #60 tablet PRN Reason: Pain Aspirin [Ecotrin] 325 mg PO BID #70 tab.ec Cyclobenzaprine [Flexeril] 10 mg PO TID PRN #40 tablet PRN Reason: Spasms Home Medications: Home Meds Hydrochlorothiazide 25 mg PO DAILY 11/03/15 [History] Cholecalciferol (Vitamin D3) [Vitamin D] 1 tab PO DAILY 07/19/17 [History] Clopidogrel [Plavix] 1 tab PO DAILY 07/19/17 [History] Ferrous Sulfate [Iron] 1 tab PO DAILY 07/19/17 [History] Mesalamine [Canasa] 1,000 mg PO QID 07/19/17 [History] Ranitidine HCl [Zantac] 1 tab PO ASDIRECTED PRN 07/19/17 [History] Vitamin B Complex [B Complex] 1 tab PO DAILY 07/19/17 [History] Acetaminophen [Tylenol] 975 mg PO Q8H PRN tablet 07/20/17 [Rx] Acetaminophen/oxyCODONE [Percocet 325-5 MG] 1 - 2 tab PO Q4H PRN #60 tablet 12/30 [Rx] Aspirin [Ecotrin] 325 mg PO BID #70 tab.ec 07/20/17 [Rx] Bisacodyl [Dulcolax] 5 mg PO DAILY PRN tablet 07/20/17 [Rx] Cyclobenzaprine [Flexeril] 10 mg PO TID PRN #40 tablet 07/20/17 [Rx] Docusate Sodium [Colace] 100 mg PO BID cap 07/20/17 [Rx] Patient's Own Medication [Ptom] 1 each PO DAILY each 07/20/17 [Rx] Sennosides [Senna] 8.6 mg PO BID PRN tablet 07/20/17 [Rx] Patient Handouts: Cyclobenzaprine tablets, Acetaminophen; Oxycodone tablets, Clopidogrel tablets, Total Knee Replacement, Care After, [id number], Total Knee Replacement, [id number], Aspirin, ASA oral tablets, Knee Rehabilitation Guidelines Following Surgery Referrals: Jim Kamara MD [Primary Care Provider] - Bhumi Jimenes PA-C [Physician Jigmaker] - (Follow up with Bhumi Jimenes PA-C. Jul 27-9:30am Aug 03 9:45am) - Patient Data Vitals - Most Recent: Last Vital Signs Temp 99.3 F 07/20/17 11:12 Pulse 99 07/20/17 08:18 Resp 16 07/20/17 08:18 BP 111/62 07/20/17 08:18 Pulse Ox 89 L 07/20/17 08:18 Weight - Most Recent: 251 lb Med Orders - Current: Current Medications Discontinued Medications Acetaminophen (Tylenol) 975 mg PO Q8H PRN PRN Reason: Pain Last Admin: 07/20/17 09:52 Dose: 975 mg Aspirin (Ecotrin) 325 mg PO BID JOSE ARMANDO Last Admin: 07/20/17 08:15 Dose: 325 mg Bisacodyl (Dulcolax) 5 mg PO DAILY PRN PRN Reason: Constipation Bupivacaine HCl (Marcaine 0.25%) Confirm Administered Dose 30 ml .ROUTE .STK- MED ONE Stop: 07/19/17 06:27 Last Admin: 07/19/17 09:12 Dose: 4 ml Cefazolin Sodium (Ancef) Confirm Administered Dose 2 gm .ROUTE .STK-MED ONE Stop: 07/19/17 06:31 Last Admin: 07/19/17 08:36 Dose: 2 gm Cefazolin Sodium (Ancef) Confirm Administered Dose 2 gm .ROUTE .STK-MED ONE Stop: 07/19/17 07:15 Morphine Sulfate 8 mg/Epinephrine HCl 0.3 mg/Cefuroxime Sodium 750 mg/Ketorolac Tromethamine 30 mg/Sodium Chloride 27.9 ml 0 mg .XX ONETIME ONE Stop: 07/19/17 06:16 Last Admin: 07/19/17 08:40 Dose: 788.3 mg Cyclobenzaprine HCl (Flexeril) 10 mg PO TID PRN PRN Reason: Spasms Diphenhydramine HCl (Benadryl) 25 mg IVPUSH Q4H PRN PRN Reason: Nausea Diphenhydramine HCl (Benadryl) 25 mg IVPUSH Q6H PRN PRN Reason: pruritis Stop: 07/19/17 18:00 Docusate Sodium (Colace) 100 mg PO BID [facility] Last Admin: 07/20/17 08:16 Dose: 100 mg Ephedrine Sulfate (Ephedrine Sulfate) 5 mg IVPUSH ASDIRECTED PRN PRN Reason: Hypotension Stop: 07/19/17 18:00 Ephedrine Sulfate (Ephedrine In Ns) Confirm Administered Dose 25 mg .ROUTE .STK- MED ONE Stop: 07/19/17 08:43 Famotidine (Pepcid) 20 mg PO Q12H [facility] Last Admin: 07/20/17 08:15 Dose: 20 mg Fentanyl (Sublimaze) Confirm Administered Dose 100 mcg .ROUTE .STK-MED ONE Stop: 07/19/17 07:17 Fentanyl (Sublimaze) 50 mcg IVPUSH Q5M PRN PRN Reason: Pain Stop: 07/19/17 18:00 Ferrous Sulfate (Ferrous Sulfate) 325 mg PO DAILY [facility] Last Admin: 07/20/17 08:16 Dose: 325 mg Hydromorphone HCl (Dilaudid) 0.5 mg IVPUSH Q15M PRN PRN Reason: severe pain Stop: 07/19/17 18:00 Lactated Ringer's (Ringers, Lactated) 1,000 mls @ 125 mls/hr IV ASDIRECTED [facility] Last Admin: 07/19/17 06:25 Dose: 125 mls/hr Cefazolin Sodium/Dextrose 2 gm (/ Premix) 50 mls @ 100 mls/hr IV Q8H [facility] Stop: 07/19/17 22:59 Last Admin: 07/19/17 11:52 Dose: Not Given Lidocaine HCl (Xylocaine-Mpf 1%) Confirm Administered Dose 10 mls @ as directed .ROUTE .STK-MED ONE Stop: 07/19/17 07:15 Phenylephrine HCl 1 mg/ Sodium (Chloride) 10.1 mls @ 1 mls/sec IV TITRATE [facility] PRN Reason: Protocol Stop: 07/19/17 18:00 Lactated Ringer's (Ringers, Lactated) Confirm Administered Dose 1,000 mls @ as directed .ROUTE .STK-MED ONE Stop: 07/19/17 07:55 Lactated Ringer's (Ringers, Lactated) Confirm Administered Dose 1,000 mls @ as directed .ROUTE .STK-MED ONE Stop: 07/19/17 07:55 Cefazolin Sodium/Dextrose 2 gm (/ Premix) 50 mls @ 100 mls/hr IV Q8H [facility] Stop: 07/20/17 07:44 Last Admin: 07/20/17 08:18 Dose: 100 mls/hr Lactated Ringer's (Ringers, Lactated) 1,000 mls @ 500 mls/hr IV ASDIRECTED [facility] Last Admin: 07/19/17 14:33 Dose: 500 mls/hr Iodine (Iodine 2% Mild Tincture) Confirm Administered Dose 30 ml .ROUTE .[facility]- MED ONE Stop: 07/19/17 06:30 Last Admin: 07/19/17 08:32 Dose: 18 ml Ketamine HCl (Ketalar) Confirm Administered Dose 500 mg .ROUTE .[facility]-MED ONE Stop: 07/19/17 07:17 Lidocaine/Sodium Bicarbonate (Buffered Lidocaine 1% In Ns 8.4%) 0.25 ml IV ONETIME PRN PRN Reason: Prior to IV Start Last Admin: 07/19/17 06:24 Dose: 0.25 ml Magnesium Hydroxide (Milk Of Magnesia) 30 ml PO BID PRN PRN Reason: Constipation Midazolam HCl (Versed 1 Mg/Ml) Confirm Administered Dose 2 mg .ROUTE .STK-MED ONE Stop: 07/19/17 07:16 Morphine Sulfate (Morphine) 2 mg IVPUSH Q2H PRN PRN Reason: Breakthrough Pain Morphine Sulfate (Duramorph Pf) Confirm Administered Dose 10 mg .ROUTE .STK-MED ONE Stop: 07/19/17 07:02 Naloxone HCl (Narcan) 0.1 mg IVPUSH Q5M PRN PRN Reason: Oversedation Non-Formulary Medication (Cholecalciferol (Vitamin D3) [Vitamin D]) 1 tab PO DAILY [facility] Non-Formulary Medication (Ranitidine Hcl) 1 tab PO ASDIRECTED PRN PRN Reason: Heartburn Ondansetron HCl (Zofran) 4 mg IVPUSH Q6H PRN PRN Reason: Nausea/Vomiting Ondansetron HCl (Zofran) Confirm Administered Dose 4 mg .ROUTE .STK-MED ONE Stop: 07/19/17 07:15 Ondansetron HCl (Zofran) 4 mg IVPUSH ONETIME PRN PRN Reason: Nausea/Vomiting Stop: 07/19/17 18:00 Oxycodone/Acetaminophen (Percocet 325-5 Mg) 1 - 2 tab PO Q4H PRN PRN Reason: Pain Clopidrogrel 75mg ( (Patient's Own Med)) 1 each PO DAILY [facility] Last Admin: 07/20/17 08:18 Dose: 1 each Hydrochlorothiazide 25mg (Patient's Own Med) 1 each PO DAILY [facility] Last Admin: 07/20/17 08:18 Dose: 1 each Mesalamine (Pentasa) (500mg) 2 each PO QID [facility] Last Admin: 07/20/17 12:32 Dose: 2 each Cholecalciferol 5000units/Capsule ( Patients Own) 1 each PO DAILY [facility] Last Admin: 07/20/17 08:18 Dose: 1 each Phenylephrine HCl (Phenylephrine In Ns 100 Mcg/Ml) Confirm Administered Dose 1 mg .ROUTE .STK-MED ONE Stop: 07/19/17 07:15 Propofol (Diprivan 20 Ml) Confirm Administered Dose 400 mg .ROUTE .STK-MED ONE Stop: 07/19/17 07:15 Propofol (Diprivan 20 Ml) Confirm Administered Dose 200 mg .ROUTE .STK-MED ONE Stop: 07/19/17 08:29 Senna (Senna) 8.6 mg PO BID PRN PRN Reason: Constipation Sodium Chloride (Saline Flush) 10 ml FLUSH ASDIRECTED PRN PRN Reason: Keep Vein Open Tranexamic Acid (Cyklokapron) Confirm Administered Dose 1,000 mg .ROUTE .STK- MED ONE Stop: 07/19/17 06:30 Last Admin: 07/19/17 08:55 Dose: 1,000 mg Triamcinolone Acetonide (Kenalog-40) Confirm Administered Dose 80 mg .ROUTE .STK -MED ONE Stop: 07/19/17 06:38 Last Admin: 07/19/17 09:12 Dose: 80 mg Vancomycin HCl (Vancomycin) Confirm Administered Dose 1 gm .ROUTE .[facility]-MED ONE Stop: 07/19/17 06:30 Last Admin: 07/19/17 08:43 Dose: 1 gm *Q Meaningful Use (DIS) - VTE *Q VTE Criteria *Q: - Stroke *Q Stroke Criteria *Q: - AMI *Q AMI Criteria *Q:
--- NOTE | 2017-07-26 07:21 | PCM.OPNOTE ---
- General Post-Op/Procedure Note Date of Surgery/Procedure: 07/19/17 Operative Procedure(s): right total knee arthroplasty with left knee corticosteroid injection Pre Op Diagnosis: bilateral knee osteoarthrosis Post-Op Diagnosis: Same Anesthesia Technique: Local, MAC, Spinal Primary Surgeon: Donald Montano Anesthesia Provider: Esthela Rodriguez Electronic Masking System Operator: Bhumi Jimenes Electronic Masking System Operator: Luba Marie EBL in mLs: 350 Complications: None Condition: Good
--- NOTE | 2017-07-26 08:58 | OR ---
DATE OF OPERATION: 07/19/2017 SURGEON: Donald Montano MD OPERATION PERFORMED: Right total knee arthroplasty with left knee corticosteroid injection. PREOPERATIVE DIAGNOSIS: Bilateral knee osteoarthrosis. POSTOPERATIVE DIAGNOSIS: Bilateral knee osteoarthrosis. ANESTHESIA: Local MAC with spinal. ANESTHESIA PROVIDER: Esthela Rodriguez CRNA. ASSISTANTS: Bhumi Jimenes PA-C, and Luba Marie LPN. ESTIMATED BLOOD LOSS: 350 mL. COMPLICATIONS: None. CONDITION: Stable. DESCRIPTION OF PROCEDURE: The patient was identified in the preop holding area. Proper site was marked and identified by the surgeon. The patient was taken back to the operating theater where, after adequate anesthesia, the patient's right lower extremity had a nonsterile tourniquet applied and was then sterilely prepped and draped in the usual sterile fashion. OR-wide time-out was performed. The patient received 2 grams of IV Ancef. At this time, right lower extremity was exsanguinated. Tourniquet was insufflated to 300 mmHg. A standard medial parapatellar skin incision was made and medial parapatellar arthrotomy was created. Deep fibers of the MCL were raised and anterior fat pad was resected. At this time, the patella was measured and it measured a 26 and resected to a 16 for a 35 x 10 mm patella. The drill holes were then drilled and found to be adequate. Attention was turned to the distal femur. Intramedullary distal femoral hole was created, and the intramedullary distal femoral cutting guide was placed, 8 mm was resected off the distal femur. Sizing guide was placed. It was found to be a size 7 femur. At this time, epicondylar axis holes were drilled using Gueydan's line and epicondyles as reference. A 4-in-1 cutting block for a size 7 was then placed anterior-posterior. Anterior, posterior, and chamfer cuts were then completed. The box cut was then completed for a size 7 and found to be adequate. At this time, attention was turned to the tibia. Posterior medial and lateral retractors were placed. The extramedullary tibial cutting guide was then placed, and the old footprint of the ACL was aligned for varus and valgus alignment roughly at center of the ankle and for 0-3 degrees of slope. At this time, 9 mm was measured off the unaffected lateral side, and the resection was carried out. It was found to be an adequate resection. Posterior osteophytes along with medial and lateral meniscus were then removed. Trial components with size 7 baseplate was placed in a 9-mm trial spacer. The patient's knee had full flexion and extension with alignment roughly at the center of the ankle and in no varus or valgus instability. Patella was tracking centrally. At this time, the tibia was stamped and drilled in the proper rotation. A size 7 press-fit tibial component was then impacted into place, size 7 press-fit femur was then impacted into place, and a 9-mm PS X3 polyethylene was impacted into place. The patient's knee was brought into full extension and a 35 x 10 mm press-fit patella was press-fit into place. The tourniquet was deflated. 1 L of dilute Betadine solution was then irrigated through the knee along with 3 L of pulse lavage irrigation with Ancef. Topical tranexamic acid as well as vancomycin powder was then placed. A #2 barbed suture was used for closure of the medial parapatellar arthrotomy, 2-0 Vicryl was used subcutaneously, a running 3-0 Monocryl, as well as Prineo was used for the skin. The patient tolerated the procedure well. The patient, at this time, also underwent a corticosteroid injection to the left knee under sterile technique, 2 mL of 40 mg Kenalog and 4 mL of 0.25% Marcaine were injected to the left knee. The patient tolerated that as well and was sent to the PACU. MAYCO /[id number]
== END 2017-07-20 15:15 | disposition home or self-care (01) | DRG 470 ==
LOC: JD.OB 05:58 → JD.MS 07-20 15:13 → UNDODISIN 07-20 15:15
PROVIDERS: ADMIT Orthopaedic Surgery; ATTEND Orthopaedic Surgery
PROC: 0SRC0J9 Replacement of Right Knee Joint with Synthetic Substitute, Cemented, Open Approach (ICD-10-PCS; principal; 2017-07-19)
PROC: 3E0U33Z Introduction of Anti-inflammatory into Joints, Percutaneous Approach (ICD-10-PCS; 2017-07-19)
PROC: 3E0U3BZ Introduction of Anesthetic Agent into Joints, Percutaneous Approach (ICD-10-PCS; 2017-07-19)
DX: M17.0 Bilateral primary osteoarthritis of knee (principal); I10 Essential (primary) hypertension; G47.33 Obstructive sleep apnea (adult) (pediatric); K21.9 Gastro-esophageal reflux disease without esophagitis; K44.9 Diaphragmatic hernia without obstruction or gangrene; Z86.73 Personal history of transient ischemic attack (TIA), and cerebral infarction without residual deficits; Z87.891 Personal history of nicotine dependence; R01.1 Cardiac murmur, unspecified; Z87.19 Personal history of other diseases of the digestive system; L40.9 Psoriasis, unspecified
CPT/HCPCS: 01402; 36415; 73560-26-RT; 73560-RT; 80053; 85018; 85027; 85610; 85730; 94762; 97110-GP; 97116-GP; 97162-GP; 97165-GO; 97530-GO; 97535-GO; A9270-GY; C1776; J0171; J0690; J0697; J1885; J2250; J2270; J2405; J2704; J3010; J3301; J3370; J3490; J7050; J7120

== ENCOUNTER 2017-10-04 12:40 | Emergency (ER) | payer MEDICARE, OTHER ==
[2017-10-04 13:08] VITALS: BP 159/87
--- NOTE | 2017-10-04 13:29 | EDM.PDOC ---
ED HPI GENERAL MEDICAL PROBLEM - General Chief Complaint: Skin Complaint Stated Complaint: RIGHT TOE INFECTION Time Seen by Provider: 10/04/17 13:12 Source of Information: Reports: Patient, RN Notes Reviewed - History of Present Illness INITIAL COMMENTS - FREE TEXT/NARRATIVE: 72-year-old male comes in with symptoms of infection right great toe. This started with swelling and erythema at the base of the right toe about one week ago. Redness and swelling has just been gradually worsening over the past week. He has tried to get in our [employer] at [facility] but he is gone on vacation right now. He has had no fever or chills. He is not aware of any acute or recent injury. Does have history of prior right knee replacement about 6 weeks ago. All has gone well for him. No recent fever or chills. He is not diabetic. Right Feet Pain Score (Numeric/FACES): 5 - Related Data Allergies Allergy/AdvReac Type Severity Reaction Status Date / Time Penicillins Allergy Rash Verified 10/04/17 13:01 Home Meds: Home Meds Hydrochlorothiazide 25 mg PO DAILY 11/03/15 [History] Cholecalciferol (Vitamin D3) [Vitamin D] 1 tab PO DAILY 07/19/17 [History] Clopidogrel [Plavix] 1 tab PO DAILY 07/19/17 [History] Ferrous Sulfate [Iron] 1 tab PO DAILY 07/19/17 [History] Ranitidine HCl [Zantac] 1 tab PO ASDIRECTED PRN 07/19/17 [History] Vitamin B Complex [B Complex] 1 tab PO DAILY 07/19/17 [History] Acetaminophen [Tylenol] 975 mg PO Q8H PRN tablet 07/20/17 [Rx] Acetaminophen/oxyCODONE [Percocet 325-5 MG] 1 - 2 tab PO Q4H PRN #60 tablet 12/30 [Rx] Bisacodyl [Dulcolax] 5 mg PO DAILY PRN tablet 07/20/17 [Rx] Cyclobenzaprine [Flexeril] 10 mg PO TID PRN #40 tablet 07/20/17 [Rx] Aspirin [Ecotrin] 162 mg PO DAILY 10/04/17 [History] Cephalexin 500 mg PO Q6HR #40 capsule 10/04/17 [Rx] Doxycycline [Vibramycin] 100 mg IV Q12H #20 vial 10/04/17 [Rx] Mupirocin Oint [Bactroban Oint] 22 gm .XX Q8HR #1 tube 10/04/17 [Rx] Past Medical History Other HEENT History: glasses for reading Cardiovascular History: Reports: Heart Murmur, Hypertension Other Cardiovascular History: aortic regurgitation Respiratory History: Reports: Sleep Apnea Other Respiratory History: uses bipap Gastrointestinal History: Reports: Diverticulosis, GI Bleed, Hiatal Hernia, Other (See Below) Other Gastrointestinal History: blood in stool Musculoskeletal History: Reports: Arthritis Neurological History: Reports: Other (See Below) 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 on bipapa GI Surgical History: Reports: Colonoscopy, EGD Other GI Surgeries/Procedures: colon polyp, Male Surgical History: Reports: None Other Endocrine Surgeries/Procedures: pancreatic calcification Social & Family History - Family History Family Medical History: Noncontributory HEENT: Reports: None : Reports: Renal Disease/Insufficiency Other Family History: mom from renal failure Endocrine/Metabolic: Reports: Diabetes, type II Other Endocrine/Metabolic Family History: dad Hematologic: Reports: None Immunologic: Reports: None Dermatologic: Reports: Psoriasis Other Dermatologic Family History: brothers Oncologic: Reports: None - Tobacco Use Smoking Status *Q: Former Smoker Years of Tobacco use: 25 Packs/Tins Daily: 1 Used Tobacco, but Quit: Yes Month Tobacco Last Used: 48 - Caffeine Use Caffeine Use: Reports: Soda - Recreational Drug Use Recreational Drug Use: No Drug Use in Last 12 Months: No ED ROS GENERAL - Review of Systems Review Of Systems: See Below Constitutional: Denies: Fever, Chills HEENT: Reports: No Symptoms Respiratory: Denies: Shortness of Breath Cardiovascular: Denies: Chest Pain GI/Abdominal: Denies: Abdominal Pain, Nausea, Vomiting Musculoskeletal: Reports: Other (Pain, swelling, erythema right great toe) Skin: Reports: Erythema (Right great toe) Neurological: Reports: No Symptoms ED EXAM, SKIN/RASH Exam: See Below General Appearance: Alert, No Apparent Distress Throat/Mouth: Normal Inspection Head: No: Facial Swelling Neck: Supple, Full Range of Motion Respiratory/Chest: No Respiratory Distress, Lungs Clear, Normal Breath Sounds Cardiovascular: Regular Rate, Rhythm Extremities: Redness (Diffuse redness, mild swelling and moderate tenderness of the distal half right great toe, mild superficial skin disruption dorsal aspect just proximal to the right nailbed, no drainage at this time.), Other (Right knee nontender, good range of motion) Neurological: Alert, Oriented, No Motor/Sensory Deficits Skin: Warm, Dry Course - Vital Signs Last Recorded V/S: Last Vital Signs Temp 97.2 F 10/04/17 13:06 Pulse 97 10/04/17 13:06 Resp 18 10/04/17 13:06 BP 159/87 H 10/04/17 13:06 Pulse Ox 98 10/04/17 13:06 Departure - Departure Time of Disposition: 13:24 Disposition: Home, Self-Care 01 Condition: Fair Clinical Impression: Toe infection - Discharge Information Prescriptions: Cephalexin 500 mg PO Q6HR #40 capsule Mupirocin Oint [Bactroban Oint] 22 gm .XX Q8HR #1 tube Doxycycline [Vibramycin] 100 mg IV Q12H #20 vial Referrals: Jim Kamara MD [Primary Care Provider] - Forms: ED Department Discharge Additional Instructions: Soak in warm soapy water 3-4 times daily, Bactroban ointment topically to outside area of skin disruption after each soaking, doxycycline 100 mg twice daily for 10 days, cephalexin 500 mg 4 times daily for 10 days, see Dr. Muller in about 10-14 days as planned, return to ED as needed if symptoms worsening in any way.
== END 2017-10-04 13:45 | disposition home or self-care (01) ==
LOC: JD.ED 12:40
DX: L08.9 Local infection of the skin and subcutaneous tissue, unspecified (principal); I10 Essential (primary) hypertension; G47.30 Sleep apnea, unspecified; Z87.891 Personal history of nicotine dependence; Z79.82 Long term (current) use of aspirin; Z79.02 Long term (current) use of antithrombotics/antiplatelets; Z79.899 Other long term (current) drug therapy; Z88.0 Allergy status to penicillin
CPT/HCPCS: 99283

== ENCOUNTER 2021-03-17 04:46 | Observation (INO) | payer MEDICARE, OTHER ==
[2021-03-17] MEDS ORDERED: Sodium Chloride 0.9% 10 ML Syringe FLUSH PRN (05:19)
[2021-03-17] MEDS ORDERED: Albuterol/Ipratropium 3.0-0.5 MG/3 ML Neb Soln NEB ONE (05:21)
[2021-03-17] MEDS ORDERED: methylPREDNISolone Sodium Succinate 125 MG/2 ML SDV IVPUSH ONE (05:21)
--- NOTE | 2021-03-17 05:28 | EDM.PDOC ---
ED HPI GENERAL MEDICAL PROBLEM - General Chief Complaint: Respiratory Problem Stated Complaint: SOB, RECENTLY HAD COVID Time Seen by Provider: 03/17/21 04:57 Source of Information: Reports: Patient, Family History Limitations: Reports: No Limitations - History of Present Illness INITIAL COMMENTS - FREE TEXT/NARRATIVE: The patient presents with shortness of breath and cough. This has been going on for over 3 weeks. His doctor checked him for COVID and he was negative at that time. He had a CXR done that showed a mass in the right upper lung. He was scheduled to go to [place] to have a biopsy done. They checked him again for COVID and he was positive. He has been on quarantine since Wednesday night. He has been having fits of coughing and early this morning he had another one and was short of breath. He has no chest pain. He does not feel like he has a fever or chills. He does have some mild swelling in both legs. He did have COVID back in August. He did not get the vaccine. He is a former smoker and quit in 2011. He has no abdominal pain, nausea, vomiting or diarrhea. He has a history of stroke and is on plavix. He has stopped that due to the biopsy being rescheduled for this . Onset: Gradual Duration: Week(s): Severity: Moderate Improves with: Reports: None Worsens with: Reports: None Associated Symptoms: Reports: Cough, Shortness of Breath. Denies: Chest Pain, Fever/Chills, Headaches, Nausea/Vomiting - Related Data Allergies Allergy/AdvReac Type Severity Reaction Status Date / Time Penicillins Allergy Rash Verified 03/17/21 05:02 Home Meds: Home Meds Cholecalciferol (Vitamin D3) [Vitamin D] 5,000 units PO DAILY 07/19/17 [History] Clopidogrel [Plavix] 75 mg PO DAILY 07/19/17 [History] Aspirin [Ecotrin] 162 mg PO DAILY 10/04/17 [History] Past Medical History Other HEENT History: glasses for reading Cardiovascular History: Reports: Heart Murmur, Hypertension Other Cardiovascular History: aortic stenosis. Also murmur radiates to the left axilla suggesting mitral insufficiency. Respiratory History: Reports: COPD, Sleep Apnea, Other (See Below) Other Respiratory History: uses bipap. 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 on bipapa GI Surgical History: Reports: Colonoscopy, EGD Other GI Surgeries/Procedures: colon polyp, Male Surgical History: Reports: None Other Endocrine Surgeries/Procedures: pancreatic calcification Other Neurological Surgeries/Procedures: TIA this time Social & Family History - Family History Family Medical History: No Pertinent Family History HEENT: Reports: None : Reports: Renal Disease/Insufficiency Other Family History: mom from renal failure Endocrine/Metabolic: Reports: Diabetes, type II Other Endocrine/Metabolic Family History: dad Hematologic: Reports: None Immunologic: Reports: None Dermatologic: Reports: Psoriasis Other Dermatologic Family History: brothers Oncologic: Reports: None - Tobacco Use Tobacco Use Status *Q: Former Tobacco User Used Tobacco, but Quit: Yes Month/Year Tobacco Last Used: 2011 - Caffeine Use Caffeine Use: Reports: Soda - Living Situation & Occupation Living situation: Reports: Occupation: Retired ED ROS GENERAL - Review of Systems Review Of Systems: See Below Constitutional: Reports: No Symptoms HEENT: Reports: No Symptoms Respiratory: Reports: Shortness of Breath, Cough Cardiovascular: Reports: Edema (mild to both legs). Denies: Chest Pain Endocrine: Reports: No Symptoms GI/Abdominal: Reports: No Symptoms : Reports: No Symptoms Musculoskeletal: Reports: No Symptoms Skin: Reports: No Symptoms ED EXAM, GENERAL - Physical Exam Exam: See Below Exam Limited By: No Limitations General Appearance: Alert, No Apparent Distress Ears: Normal External Exam Nose: Normal Inspection Head: Atraumatic, Normocephalic Neck: Normal Inspection Respiratory/Chest: No Respiratory Distress, Decreased Breath Sounds Cardiovascular: Regular Rate, Rhythm, No Edema, No Murmur GI/Abdominal: Soft, Non-Tender, No Organomegaly, No Mass Back Exam: Normal Inspection Extremities: Normal Inspection #1 Interpretation EKG Date: 03/17/21 Time: 04:54 Rhythm: NSR Rate (Beats/Min): 89 Clifford: LAD-Left Clifford Deviation P-Wave: Present QRS: Normal ST-T: Normal QT: Normal Course - Vital Signs Last Recorded V/S: Last Vital Signs Temp 97.8 F 03/17/21 04:56 Pulse 91 03/17/21 06:38 Resp 20 03/17/21 06:38 BP 133/87 03/17/21 06:38 Pulse Ox 96 03/17/21 06:38 - Orders/Labs/Meds Orders: Active Orders 24 hr Category Date Time Status Cardiac Monitoring [RC] . DIRECTED Care 03/17/21 05:20 Active EKG Documentation Completion [RC] STAT Care 03/17/21 05:20 Active Oxygen Therapy [RC] PRN Care 03/17/21 05:20 Active Peripheral IV Care [RC] . DIRECTED Care 03/17/21 05:20 Active RT Aerosol Therapy [RC] ASDIRECTED Care 03/17/21 05:21 Active Ang Chest [CT] Stat Exams 03/17/21 05:20 Taken BLOOD CULTURE [MREF] Stat Lab 03/17/21 08:03 Ordered LACTIC ACID [CHEM] Stat Lab 03/17/21 08:03 Ordered PROCALCITONIN [REF] Stat Lab 03/17/21 08:03 Ordered Sodium Chloride 0.9% [Saline Flush] Med 03/17/21 05:19 Active 10 ml FLUSH ASDIRECTED PRN Peripheral IV Insertion Adult [OM.PC] Stat Oth 03/17/21 05:19 Ordered Medication Orders Sodium Chloride (Sodium Chloride 0.9% 10 Ml Syringe) 10 ml FLUSH ASDIRECTED PRN PRN Reason: Keep Vein Open Last Admin: 03/17/21 05:27 Dose: 10 ml Documented by: STEPHANIE Labs: Laboratory Tests 03/17/21 03/17/21 Range/Units 05:10 05:10 WBC 10.34 H (4.23-9.07) K/mm3 RBC 5.69 (4.63-6.08) M/mm3 Hgb 14.7 (13.7-17.5) gm/dl Hct 44.9 (40.1-51.0) % MCV 78.9 L D (79.0-92.2) fl MCH 25.8 (25.7-32.2) pg MCHC 32.7 (32.2-35.5) g/dl RDW Std Deviation 46.8 H (35.1-43.9) fL Plt Count 339 H (163-337) K/mm3 MPV 9.9 (9.4-12.3) fl Neut % (Auto) 65.7 (34.0-67.9) % Lymph % (Auto) 19.8 L (21.8-53.1) % Calloway % (Auto) 8.1 (5.3-12.2) % Eos % (Auto) 5.2 (0.8-7.0) Baso % (Auto) 1.2 (0.1-1.2) % Neut # (Auto) 6.79 H (1.78-5.38) K/mm3 Lymph # (Auto) 2.05 (1.32-3.57) K/mm3 Calloway # (Auto) 0.84 H (0.30-0.82) K/mm3 Eos # (Auto) 0.54 (0.04-0.54) K/mm3 Baso # (Auto) 0.12 H (0.01-0.08) K/mm3 Manual Slide Review Normal smear Sodium 147 H (136-145) mEq/L Potassium 3.8 (3.5-5.1) mEq/L Chloride 109 H (98-107) mEq/L Carbon Dioxide 27 (21-32) mEq/L Anion Gap 14.8 (5-15) BUN 22 H (7-18) mg/dL Creatinine 1.4 H (0.7-1.3) mg/dL Est Cr Clr Drug Dosing 48.24 mL/min Estimated GFR (MDRD) 50 (>60) mL/min BUN/Creatinine Ratio 15.7 (14-18) Glucose 104 H (70-99) mg/dL Calcium 8.7 (8.5-10.1) mg/dL Total Bilirubin 0.6 (0.2-1.0) mg/dL AST 17 (15-37) U/L ALT 16 (16-63) U/L Alkaline Phosphatase 90 (46-116) U/L Troponin I < 0.017 (0.00-0.056) ng/mL Total Protein 6.9 (6.4-8.2) g/dl Albumin 3.2 L (3.4-5.0) g/dl Globulin 3.7 gm/dL Albumin/Globulin Ratio 0.9 L (1-2) Meds: Medications Generic Name Dose Route Start Last Admin Trade Name Abram PRN Reason Stop Dose Admin Sodium Chloride 10 ml 03/17/21 05:19 03/17/21 05:27 Sodium Chloride 0.9% 10 Ml Syringe FLUSH 10 ml ASDIRECTED PRN Administration Keep Vein Open Discontinued Medications Generic Name Dose Route Start Last Admin Trade Name Abram PRN Reason Stop Dose Admin Albuterol/Ipratropium 3 ml 03/17/21 05:21 03/17/21 05:37 Albuterol/Ipratropium 3.0-0.5 Mg/3 Ml Neb Soln NEB 03/17/21 05:22 3 ml ONETIME ONE Administration Methylprednisolone Sodium Succinate 125 mg 03/17/21 05:21 03/17/21 05:40 Methylprednisolone Sodium Succinate 125 Mg/2 Ml Sdv IVPUSH 03/17/21 05:22 125 mg ONETIME ONE Administration - Re-Assessments/Exams Free Text/Narrative Re-Assessment/Exam: 03/17/21 05:32 I ordered oxygen, IV saline lock, EKG, CT angio of his chest, labs, duoneb, and solu-medrol 125mg IV. 03/17/21 06:35 His EKG shows a NSR with no acute changes. His WBC was slightly elevated at 10.34 along with his platelets at 339. His Na is a little elevated at 147. His creatinine was slightly elevated at 1.4. His GFR is 50. His troponin is negative. 03/17/21 07:[address] shows a large right suprahilar mass measuring 8.6 X 6.3 X 5.5 cm. 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 There is extension into the mediastinum. There is hazy consolidation around the mass extending into he right pulmonary apex right middle lobe, and right lower lobe. This probably represents lymphangitic spread. The left lung is clear. Moderate mediastinal adenopathy is consistent with metastatic disease. Small right pleural effusion is most likely a malignant effusion. No pulmonary embolus. I tried to take him off the oxygen and his oxygen saturations dropped to 88% on room air. I feel he needs to be admitted. I called [facility] in [place] and they will be calling me back. 03/17/21 08:04 I talked to the hospitalist and he would not accept the patient. They did not have any beds and they could not get the biopsy done any sooner. He recommended admission here. I called Dr Boateng out hospitalist and he will admit the patient. He did want a lactic acid, blood cultures and another COVID screen. He will decide if antibiotics are needed. Departure - Departure Time of Disposition: 08:10 Disposition: Refer to Observation Condition: Fair Clinical Impression: Lung mass, Hypoxia - Discharge Information Referrals: Jim Kamara MD [Primary Care Provider] - Forms: ED Department Discharge Sepsis Event Note (ED) - Evaluation Sepsis Screening Result: No Definite Risk - Focused Exam Vital Signs: Vital Signs Temp Pulse Resp BP Pulse Ox Pulse Ox 03/17/21 06:38 91 20 133/87 96 03/17/21 05:38 95 03/17/21 04:56 97.8 F 90 20 166/94 H 89 L - My Orders Last 24 Hours: My Active Orders 03/17/21 05:19 Sodium Chloride 0.9% [Saline Flush] 10 ml FLUSH ASDIRECTED PRN Peripheral IV Insertion Adult [OM.PC] Stat 03/17/21 05:20 Cardiac Monitoring [RC] . DIRECTED EKG Documentation Completion [RC] STAT Oxygen Therapy [RC] PRN Peripheral IV Care [RC] . DIRECTED Ang Chest [CT] Stat 03/17/21 05:21 RT Aerosol Therapy [RC] ASDIRECTED 03/17/21 08:03 BLOOD CULTURE [MREF] Stat LACTIC ACID [CHEM] Stat PROCALCITONIN [REF] Stat - Assessment/Plan Last 24 Hours: My Active Orders 03/17/21 05:19 Sodium Chloride 0.9% [Saline Flush] 10 ml FLUSH ASDIRECTED PRN Peripheral IV Insertion Adult [OM.PC] Stat 03/17/21 05:20 Cardiac Monitoring [RC] . DIRECTED EKG Documentation Completion [RC] STAT Oxygen Therapy [RC] PRN Peripheral IV Care [RC] . DIRECTED Ang Chest [CT] Stat 03/17/21 05:21 RT Aerosol Therapy [RC] ASDIRECTED 03/17/21 08:03 BLOOD CULTURE [MREF] Stat LACTIC ACID [CHEM] Stat PROCALCITONIN [REF] Stat
--- NOTE | 2021-03-17 08:21 | PCM.HP.2 ---
H&P History of Present Illness - General Date of Service: 03/17/21 Source of Information: Patient, Old Records, Provider, RN, RN Notes Reviewed History Limitations: Reports: No Limitations - History of Present Illness Initial Comments - Free Text/Narative: This is a very pleasant 75-year-old male who presented to ED on 03/17/2021 with shortness of breath and cough. He reports this has been ongoing for 3 weeks. Per his report he had Covid in June and although he felt pretty rough he did not require any hospitalization or treatment such as steroids. He reports he recovered from this but was noted to have a mass in his right upper chest during imaging. He reports symptoms returned and he was seen by his primary care pr frank who tested for Covid and it was negative. A few days later he was retested and it returned positive. He underwent quarantine and was released yesterday (Wednesday03/16/2021) night after 10 days. He states he has been having ongoing dyspneic episodes and cough. He reports nasal drainage. Denies any chest or abdomen pain. Denies any nausea, vomiting, or diarrhea. States he feels warm and does get flushed at times but this has been his normal. Reports mild swelling bilaterally. Was not vaccinated for Covid. He is a former smoker who quit in 2011. He does have a history of CVA and is on Plavix however he stopped taking this as he is scheduled to have a biopsy of his lung this , 03/20/2021. In the ED twelve-lead EKG was obtained showing a sinus rhythm at 89 bpm with left axis deviation. Temp was 97.8. Pulse 91. Respirations 20. Blood pressure 133/87. Pulse ox 96%. WBC was mildly elevated at 10.34. Hemoglobin 14.7. Hematocrit 44.9. Platelet 339,000. Neutrophils are elevated at 65.7%. Sodium is 147. Potassium 3.8. Chloride 109. Carbon dioxide 27. Anion gap is 14.8. BUN is 22. Creatinine 1.4. GFR 50. Glucose 104. Calcium 8.7. Bilirubin 0.6. AST 17, ALT 16, alkaline phosphatase 90. Troponin less than 0.017. Albumin is 3.2. Lactic acid is 1.5. Blood cultures were obtained. Procalcitonin is sent and pending. He is given a DuoNeb in 105 5 mg Solu- Medrol. Chest CT is obtained showing 1. right upper lung mass with invasion into the mediastinum. Diffuse interstitial changes noted around the mass within the right upper and right lower lung compatible with lymphangitic metastasis. 2. Mediastinal adenopathy is seen and a small right-sided pleural effusion is also noted. 3. There are no findings of pulmonary embolism. 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 He subsequently admitted to the medical floor observation status for management of his hypoxia and suspected pneumonia. His PCP is Dr. Kamara. He is a full code. - Related Data Allergies/Adverse Reactions: Allergies Allergy/AdvReac Type Severity Reaction Status Date / Time Penicillins Allergy Rash Verified 03/17/21 05:02 Home Medications: Home Meds Cholecalciferol (Vitamin D3) [Vitamin D] 5,000 units PO DAILY 07/19/17 [History] Clopidogrel [Plavix] 75 mg PO DAILY 07/19/17 [History] Cyanocobalamin (Vitamin B-12) [Vitamin B-12] 1,200 mcg PO DAILY 03/17/21 [History] L.acidoph,Paracasei, B.lactis [Probiotic] 1 each PO DAILY 03/17/21 [History] hydroCHLOROthiazide [Hydrochlorothiazide] 25 mg PO DAILY 03/17/21 [History] Past Medical History Other HEENT History: glasses for reading Cardiovascular History: Reports: Heart Murmur, Hypertension Other Cardiovascular History: aortic stenosis. Also murmur radiates to the left axilla suggesting mitral insufficiency. Respiratory History: Reports: COPD, Sleep Apnea, Other (See Below) Other Respiratory History: uses bipap. mass on lung Gastrointestinal History: Reports: Diverticulosis, GI Bleed, Hiatal Hernia, Ot her (See Below) Other Gastrointestinal History: blood in stool Musculoskeletal History: Reports: Arthritis Neurological History: Reports: TIA, Other (See Below) Other Neuro History: 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 , tia's Endocrine/Metabolic History: Reports: Obesity/BMI 30+ Dermatologic History: Reports: Psoriasis - Infectious Disease History Infectious Disease History: Reports: Novel Coronavirus - Past Surgical History HEENT Surgical History: Reports: Other (See Below) Other HEENT Surgeries/Procedures: sleep apnea. on bipapa GI Surgical History: Reports: Colonoscopy, EGD Other GI Surgeries/Procedures: colon polyp, Male Surgical History: Reports: None Other Endocrine Surgeries/Procedures: pancreatic calcification Other Neurological Surgeries/Procedures: TIA this time Social & Family History - Family History Family Medical History: No Pertinent Family History HEENT: Reports: None : Reports: Renal Disease/Insufficiency Other Family History: mom from renal failure Endocrine/Metabolic: Reports: Diabetes, type II Other Endocrine/Metabolic Family History: dad Hematologic: Reports: None Immunologic: Reports: None Dermatologic: Reports: Psoriasis Other Dermatologic Family History: brothers Oncologic: Reports: None - Tobacco Use Tobacco Use Status *Q: Former Tobacco User Used Tobacco, but Quit: Yes Month/Year Tobacco Last Used: 2011 - Caffeine Use Caffeine Use: Reports: Soda - Living Situation & Occupation Living situation: Reports: Occupation: Retired H&P Review of Systems - Review of Systems: Review Of Systems: See Below General: Reports: Weakness, Fatigue, Decreased Appetite, Weight Loss. Denies: Fever, Malaise, Diaphoresis HEENT: Reports: No Symptoms. Denies: Headaches, Sore Throat Pulmonary: Reports: Shortness of Breath, Cough, Sputum. Denies: Wheezing, Pleuritic Chest Pain, Hemoptysis Cardiovascular: Reports: Dyspnea on Exertion, Orthopnea, Edema. Denies: Chest Pain, Palpitations, Lightheadedness, Syncope Gastrointestinal: Reports: No Symptoms. Denies: Abdominal Pain, Constipation, Diarrhea, Nausea, Vomiting Genitourinary: Reports: No Symptoms. Denies: Pain Musculoskeletal: Reports: No Symptoms Skin: Reports: No Symptoms. Denies: Cyanosis Psychiatric: Reports: No Symptoms. Denies: Confusion Neurological: Reports: Weakness. Denies: Confusion, Headache, Numbness, Pre- Existing Deficit, Seizure, Syncope, Tingling, Trouble Speaking, Difficulty Walking, Gait Disturbance Hematologic/Lymphatic: Reports: No Symptoms Immunologic: Reports: No Symptoms Exam - Exam Exam: See Below - Vital Signs Vital Signs: Last Vital Signs Temp 97.8 F 03/17/21 04:56 Pulse 91 03/17/21 06:38 Resp 20 03/17/21 06:38 BP 133/87 03/17/21 06:38 Pulse Ox 96 03/17/21 06:38 Weight: 160 lb - Exam Quality Assessment: Supplemental Oxygen (2L), DVT Prophylaxis. No: Urinary Catheter General: Alert, Oriented, Cooperative. No: Mild Distress HEENT: Conjunctiva Clear, EACs Clear, Mucosa Moist & [place], Posterior Pharynx Clear Neck: Supple, Trachea Midline Lungs: Normal Respiratory Effort, Decreased Breath Sounds, Rhonchi (mild right sided ), Wheezing (mild ) Cardiovascular: Regular Rate, Regular Rhythm, Systolic Murmur GI/Abdominal Exam: Normal Bowel Sounds, Soft, Non-Tender, No Distention (Male) Exam: Deferred Rectal (Males) Exam: Deferred Back Exam: Normal Inspection, Full Range of Motion Extremities: Normal Inspection, Normal Range of Motion, Non-Tender, Normal Capillary Refill, Pedal Edema (2+) Peripheral Pulses: 2+: Radial (L), Radial (R), Dorsalis Pedis (L), Dorsalis Pedis (R) Skin: Warm, Dry, Intact Neurological: Cranial Nerves Intact (Grossly ) Neuro Extensive - Mental Status: Alert, Oriented x3, Normal Mood/Affect - Patient Data Lab Results Last 24 hrs: Laboratory Results - last 24 hr 03/17/21 03/17/21 Range/Units 05:10 05:10 WBC 10.34 H (4.23-9.07) K/mm3 RBC 5.69 (4.63-6.08) M/mm3 Hgb 14.7 (13.7-17.5) gm/dl Hct 44.9 (40.1-51.0) % MCV 78.9 L D (79.0-92.2) fl MCH 25.8 (25.7-32.2) pg MCHC 32.7 (32.2-35.5) g/dl RDW Std Deviation 46.8 H (35.1-43.9) fL Plt Count 339 H (163-337) K/mm3 MPV 9.9 (9.4-12.3) fl Neut % (Auto) 65.7 (34.0-67.9) % Lymph % (Auto) 19.8 L (21.8-53.1) % [place] % (Auto) 8.1 (5.3-12.2) % Eos % (Auto) 5.2 (0.8-7.0) Baso % (Auto) 1.2 (0.1-1.2) % Neut # (Auto) 6.79 H (1.78-5.38) K/mm3 Lymph # (Auto) 2.05 (1.32-3.57) K/mm3 [place] # (Auto) 0.84 H (0.30-0.82) K/mm3 Eos # (Auto) 0.54 (0.04-0.54) K/mm3 Baso # (Auto) 0.12 H (0.01-0.08) K/mm3 Manual Slide Review Normal smear Sodium 147 H (136-145) mEq/L Potassium 3.8 (3.5-5.1) mEq/L Chloride 109 H (98-107) mEq/L Carbon Dioxide 27 (21-32) mEq/L Anion Gap 14.8 (5-15) BUN 22 H (7-18) mg/dL Creatinine 1.4 H (0.7-1.3) mg/dL Est Cr Clr Drug Dosing 48.24 mL/min Estimated GFR (MDRD) 50 (>60) mL/min BUN/Creatinine Ratio 15.7 (14-18) Glucose 104 H (70-99) mg/dL Calcium 8.7 (8.5-10.1) mg/dL Total Bilirubin 0.6 (0.2-1.0) mg/dL AST 17 (15-37) U/L ALT 16 (16-63) U/L Alkaline Phosphatase 90 (46-116) U/L Troponin I < 0.017 (0.00-0.056) ng/mL Total Protein 6.9 (6.4-8.2) g/dl Albumin 3.2 L (3.4-5.0) g/dl Globulin 3.7 gm/dL Albumin/Globulin Ratio 0.9 L (1-2) Result Diagrams: 03/17/21 05:10 03/17/21 05:10 Sepsis Event Note - Evaluation Sepsis Screening Result: No Definite Risk - Focused Exam Vital Signs: Vital Signs Temp Pulse Resp BP Pulse Ox Pulse Ox 03/17/21 06:38 91 20 133/87 96 03/17/21 05:38 95 03/17/21 04:56 97.8 F 90 20 166/94 H 89 L - Problem List (1) Hypoalbuminemia SNOMED Code(s): 923848748 ICD Code: E88.09 - OTH DISORDERS OF PLASMA-PROTEIN METABOLISM, NEC Status: Acute Priority: Medium Current Visit: Yes (2) Pleural effusion SNOMED Code(s): 48228591 ICD Code: J90 - PLEURAL EFFUSION, NOT ELSEWHERE CLASSIFIED Status: Acute Priority: High Current Visit: Yes (3) Renal insufficiency SNOMED Code(s): 885749869, 519135811 ICD Code: N28.9 - DISORDER OF KIDNEY AND URETER, UNSPECIFIED Status: Chronic Priority: Medium Current Visit: Yes (4) Osteoarthritis SNOMED Code(s): 303548094 ICD Code: M19.90 - UNSPECIFIED OSTEOARTHRITIS, UNSPECIFIED SITE Status: Chronic Priority: Low Current Visit: No Qualifiers: Osteoarthritis location: knee Osteoarthritis type: primary Laterality: un specified laterality Qualified Code(s): M17.10 - Unilateral primary osteo arthritis, unspecified knee (5) HTN (hypertension) SNOMED Code(s): 94506678 ICD Code: I10 - ESSENTIAL (PRIMARY) HYPERTENSION Status: Chronic Priority: Medium Current Visit: No Qualifiers: Hypertension type: unspecified Qualified Code(s): I10 - Essential (primary) hypertension (6) SUSU treated with BiPAP SNOMED Code(s): 46851577 ICD Code: G47.33 - OBSTRUCTIVE SLEEP APNEA (ADULT) (PEDIATRIC) Status: Chronic Priority: Medium Current Visit: No (7) GERD (gastroesophageal reflux disease) SNOMED Code(s): 686840893 ICD Code: K21.9 - GASTRO-ESOPHAGEAL REFLUX DISEASE WITHOUT ESOPHAGITIS Status: Chronic Priority: Medium Current Visit: No Qualifiers: Esophagitis presence: esophagitis presence not specified Qualified Code(s): K21.9 - Gastro-esophageal reflux disease without esophagitis (8) Heart murmur SNOMED Code(s): 71497292 ICD Code: R01.1 - CARDIAC MURMUR, UNSPECIFIED Status: Chronic Priority: Medium Current Visit: No (9) History of GI bleed SNOMED Code(s): 025549906 ICD Code: Z87.19 - PERSONAL HISTORY OF OTHER DISEASES OF THE DIGESTIVE SYSTEM Status: Chronic Priority: Medium Current Visit: No (10) Hx-TIA (transient ischemic attack) SNOMED Code(s): 146623490 ICD Code: Z86.73 - PRSNL HX OF TIA (TIA), AND CEREB INFRC W/O RESID DEFICITS Status: Chronic Priority: Medium Current Visit: No (11) History of tobacco use SNOMED Code(s): 871921415 ICD Code: Z87.891 - PERSONAL HISTORY OF NICOTINE DEPENDENCE Status: Chronic Priority: Medium Current Visit: No (12) Psoriasis SNOMED Code(s): 5796273 ICD Code: L40.9 - PSORIASIS, UNSPECIFIED Status: Chronic Priority: Medium Current Visit: No (13) Lung mass SNOMED Code(s): 772094752 ICD Code: R91.8 - OTHER NONSPECIFIC ABNORMAL FINDING OF LUNG FIELD Status: Chronic Priority: High Current Visit: Yes (14) Hypoxia SNOMED Code(s): 913002050 ICD Code: R09.02 - HYPOXEMIA Status: Acute Priority: High Current Visit: Yes (15) History of COVID-19 SNOMED Code(s): 839763927510845041, 190967498633961029 ICD Code: Z86.16 - PERSONAL HISTORY OF COVID-19 Status: Chronic Priority: High Current Visit: Yes (16) Leukocytosis SNOMED Code(s): 113665991, 291548292 ICD Code: D72.829 - ELEVATED WHITE BLOOD CELL COUNT, UNSPECIFIED Status: Acute Priority: High Current Visit: Yes Qualifiers: Leukocytosis type: unspecified Qualified Code(s): D72.829 - Elevated white blood cell count, unspecified (17) Pneumonia SNOMED Code(s): 854338020 ICD Code: J18.9 - PNEUMONIA, UNSPECIFIED ORGANISM Status: Suspected Priority: High Current Visit: Yes Qualifiers: Pneumonia type: due to unspecified organism Laterality: right Lung location: unspecified part of lung Qualified Code(s): J18.9 - Pneumonia, unspecified organism (18) Pedal edema SNOMED Code(s): 060920001 ICD Code: R60.0 - LOCALIZED EDEMA Status: Chronic Priority: Medium Current Visit: Yes (19) Aortic stenosis SNOMED Code(s): 89735014 ICD Code: I35.0 - NONRHEUMATIC AORTIC (VALVE) STENOSIS Status: Chronic Priority: Medium Current Visit: Yes Qualifiers: Cardiac valve disease etiology: etiology unspecified Qualified Code(s): I35.0 - Nonrheumatic aortic (valve) stenosis (20) Mediastinal adenopathy SNOMED Code(s): 42867638 ICD Code: R59.0 - LOCALIZED ENLARGED LYMPH NODES Status: Acute Priority: High Current Visit: Yes Problem List Initiated/Reviewed/Updated: Yes Orders Last 24hrs: Active Orders 24 hr Category Date Time Status Cardiac Monitoring [RC] . DIRECTED Care 03/17/21 05:20 Active EKG Documentation Completion [RC] STAT Care 03/17/21 05:20 Active Oxygen Therapy [RC] PRN Care 03/17/21 05:20 Active Peripheral IV Care [RC] . DIRECTED Care 03/17/21 05:20 Active RT Aerosol Therapy [RC] ASDIRECTED Care 03/17/21 05:21 Active Ang Chest [CT] Stat Exams 03/17/21 05:20 Taken BLOOD CULTURE [MREF] Stat Lab 03/17/21 08:03 Ordered CORONAVIRUS COVID-19 ILAN [MOLEC] Stat Lab 03/17/21 08:06 Ordered LACTIC ACID [CHEM] Stat Lab 03/17/21 08:03 Ordered PROCALCITONIN [REF] Stat Lab 03/17/21 08:03 Ordered Sodium Chloride 0.9% [Saline Flush] Med 03/17/21 05:19 Active 10 ml FLUSH ASDIRECTED PRN Peripheral IV Insertion Adult [OM.PC] Stat Oth 03/17/21 05:19 Ordered Medication Orders Sodium Chloride (Sodium Chloride 0.9% 10 Ml Syringe) 10 ml FLUSH ASDIRECTED PRN PRN Reason: Keep Vein Open Last Admin: 03/17/21 05:27 Dose: 10 ml Documented by: STEPHANIE Assessment/Plan Comment:: Admission assessment - Day of admission 03/17/2021 * 75-year-old male who presented to ED on 03/17/2021 with shortness of breath and cough * History of heart murmur, hypertension, aortic stenosis, sleep apnea with BiPAP use, diverticulosis, GI bleed, hiatal hernia, arthritis, TIA, psoriasis, 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 * Underwent quarantine and was released yesterday (Wednesday03/16/2021) night after 10 days * Has been having ongoing dyspneic episodes and cough. He reports nasal drainage. * States he feels warm and does get flushed at times but this has been his normal. Reports mild swelling bilaterally. * Was not vaccinated for Covid. * Former smoker who quit in 2011 * History of CVA and is on Plavix however he stopped taking this as he is scheduled to have a biopsy of his lung this , 03/20/2021. * 12-lead EKG was obtained showing a sinus rhythm at 89 bpm with left axis deviation. * Labs obtained in ED: * WBC was mildly elevated at 10.34. * Hemoglobin 14.7. * Hematocrit 44.9. * Platelet 339,000. * Neutrophils are elevated at 65.7%. * Sodium is 147. * Potassium 3.8. * Chloride 109. * Carbon dioxide 27. * Anion gap is 14.8. * BUN is 22. Creatinine 1.4. GFR 50. * Glucose 104. * Calcium 8.7. * Bilirubin 0.6. * AST 17, ALT 16, alkaline phosphatase 90. * Troponin less than 0.017. * Albumin is 3.2. * Lactic acid is 1.5. * Blood cultures were obtained. * Procalcitonin is sent and pending. * Given a DuoNeb in 105 5 mg Solu-Medrol. * Chest CT is obtained showing: * 1. right upper lung mass with invasion into the mediastinum. Diffuse interstitial changes noted around the mass within the right upper and right lower lung compatible with lymphangitic metastasis. * 2. Mediastinal adenopathy is seen and a small right-sided pleural effusion is also noted. * 3. There are no findings of pulmonary embolism. * Subsequently admitted to the medical floor observation status for management of his hypoxia and suspected pneumonia. PLAN: Pneumonia (suspected) Leukocytosis History of COVID-19 Lung mass Hypoxia History of tobacco use SUSU treated with BiPAP Mediastinal adenopathy * Start 2gm rocephin * Start 500mg Azithromycin for 3 days * IS/Acapella * RT consultation * Mucinex * Steroid as ordered * Discussed risks and benefits of COVID treatment given recent Dx (11 days) and patient refused Remdisivir or further COVID treatment * Lung biopsy scheduled for 02/17/2021 in [place] * Caution with VTE prophylaxis * PT/OT * CM consultation * Procalcitonin obtained and pending * Blood cultures obtained and pending * Droplet isolation * Daily labs * Consider sputum culture * Continue home nocturnal BiPAP Hypoalbuminemia * [employer] Engineer consultation for hypoalbuminemia Renal insufficiency * Avoid nephrotoxic medications * Monitor need for IV fluids * Monitor daily labs Pedal edema Heart murmur Aortic stenosis Pleural effusion * Continue home HCTZ * Echocardiogram * Monitor I&Os * Check pro-BNP Osteoarthritis * No acute concerns HTN (hypertension) * Home HCTZ * Monitor vital signs GERD (gastroesophageal reflux disease) * No acute concerns History of GI bleed Hx-TIA (transient ischemic attack) * Continue to hold home plavix for upcoming lung biopsy Psoriasis * No acute concerns Code status: Full code PCP: Dr. Kamara DVT Prophylaxis: Lovenox (hold home plavix) Disposition: Patient admitted observation status with telemetry to the medical floor for management of hypoxia and further workup to rule out infectious source. LOS likely 1-2 days total. - Mortality Measure Prognosis:: Good
--- NOTE | 2021-03-17 08:35 | CT ---
CT chest Technique: Multiple axial sections were obtained from above the lung apices inferiorly through the lung bases. Intravenous contrast was utilized. Study has been performed as a pulmonary angiogram protocol. Comparison: No prior chest CT is available, prior chest x-ray of 07/27/18 is available. Findings: Mass is identified within the right upper chest adjacent to the mediastinum. There is invasion into the mediastinum being seen. This mass measures approximately 8.7 cm x 5.9 cm x 5.5 cm. There are areas of enlarged lymph nodes seen within the mediastinum compatible with metastatic disease. These measure up to 3.1 cm and are located within the paratracheal and pericarinal regions. Thoracic aorta shows no aneurysm. Pulmonary arteries show no discrete filling defects or pulmonary embolism. No pericardial thickening is seen. Small to moderate size hiatal hernia is noted. Visualized upper abdominal structures show no discrete abnormality. Minimal right-sided pleural effusion is noted. Slight interstitial change is noted around the mass within the right upper lung and right lower lung presumably due to lymphangitic metastasis. Left lung shows nothing acute. Bone window settings were reviewed which shows scattered degenerative change within the spine. No acute osseous finding is appreciated. Impression: 1. Right upper lung mass with invasion into the mediastinum. Diffuse interstitial change is noted around the mass within the right upper and right lower lung compatible with lymphangitic metastasis. 2. Mediastinal adenopathy is seen. Small right-sided pleural effusion is also noted. 3. No findings of pulmonary embolism are seen. Diagnostic code #9 I agree with preliminary report from [facility], finalized on 03/17/21, 8:18 AM CDT, code 1
[2021-03-17] MEDS ORDERED: Docusate Sodium 100 MG Cap PO PRN (09:30)
[2021-03-17] MEDS ORDERED: Albuterol/Ipratropium 3.0-0.5 MG/3 ML Neb Soln NEB PRN (09:30)
[2021-03-17] MEDS ORDERED: Ondansetron 4 MG/2 ML SDV IV PRN (09:30)
[2021-03-17] MEDS ORDERED: Acetaminophen 325 MG Tab PO PRN (09:30)
[2021-03-17] MEDS ORDERED: cefTRIAXone 2 GM in Sodium Chloride 0.9% 100 ML IV SCH (09:45)
[2021-03-17] MEDS: guaiFENesin 600 MG Tab.ER PO SCH ×2 (10:58→20:19)
[2021-03-17] MEDS: Enoxaparin 40 MG/0.4 ML Syringe SUBCUT SCH (10:59)
[2021-03-17] MEDS: cefTRIAXone 2 GM in Sodium Chloride 0.9% 100 ML IV SCH (10:59)
[2021-03-17] MEDS ORDERED: Albuterol 0.083% 2.5 MG/3 ML Neb Soln NEB PRN (11:15)
[2021-03-17] MEDS ORDERED: Azithromycin 500 MG AdvVial ONE (11:32)
[2021-03-17] MEDS: Azithromycin 500 MG in Sodium Chloride 0.9% 250 ML IV SCH (12:06)
[2021-03-18] MEDS: guaiFENesin 600 MG Tab.ER PO SCH (08:30)
[2021-03-18] MEDS: Enoxaparin 40 MG/0.4 ML Syringe SUBCUT SCH (08:32)
[2021-03-18] MEDS ORDERED: Hydrochlorothiazide 25 MG Tab PO SCH (09:00)
[2021-03-18] MEDS ORDERED: Aspirin 325 MG Tab.EC PO SCH (09:00)
[2021-03-18] MEDS ORDERED: Cyanocobalamin (Vitamin B12) 1,000 MCG Tab PO SCH (09:00)
[2021-03-18] MEDS ORDERED: Dexamethasone 4 MG Tab PO SCH (09:00)
[2021-03-18] MEDS ORDERED: Cholecalciferol (Vitamin D3) 5,000 UNIT Cap PO SCH (09:00)
[2021-03-18] MEDS ORDERED: Saccharomyces Boulardii (Probiotic) 250 MG Cap PO SCH (09:00)
[2021-03-18] MEDS: Azithromycin 500 MG in Sodium Chloride 0.9% 250 ML IV SCH (09:37)
[2021-03-18] MEDS: cefTRIAXone 2 GM in Sodium Chloride 0.9% 100 ML IV SCH (09:38)
[2021-03-18 12:12] VITALS: BP 150/79; PULSE 85
--- NOTE | 2021-03-18 13:04 | PCM.DCSUM1 ---
<Rambo Polo M - Last Filed: 03/18/21 13:07> Discharge Summary - Hospital Course Free Text/Narrative:: This is a very pleasant 75-year-old male who presented to ED on 03/17/2021 with shortness of breath and cough. He reports this has been ongoing for 3 weeks. Per his report he had Covid in June and although he felt pretty rough he did not require any hospitalization or treatment such as steroids. He reports he recovered from this but was noted to have a mass in his right upper chest during imaging. He reports symptoms returned and he was seen by his primary care provider who tested for Covid and it was negative. A few days later he was retested and it returned positive. He underwent quarantine and was released yesterday (Wednesday03/16/2021) night after 10 days. He states he has been having ongoing dyspneic episodes and cough. He reports nasal drainage. Denies any chest or abdomen pain. Denies any nausea, vomiting, or diarrhea. States he feels warm and does get flushed at times but this has been his normal. Reports mild swelling bilaterally. Was not vaccinated for Covid. He is a former smoker who quit in 2011. He does have a history of CVA and is on Plavix however he stopped taking this as he is scheduled to have a biopsy of his lung this , 03/20/2021. In the ED twelve-lead EKG was obtained showing a sinus rhythm at 89 bpm with left axis deviation. Temp was 97.8. Pulse 91. Respirations 20. Blood pressure 133/87. Pulse ox 96%. WBC was mildly elevated at 10.34. Hemoglobin 14.7. Hematocrit 44.9. Platelet 339,000. Neutrophils are elevated at 65.7%. Sodium is 147. Potassium 3.8. Chloride 109. Carbon dioxide 27. Anion gap is 14.8. BUN is 22. Creatinine 1.4. GFR 50. Glucose 104. Calcium 8.7. Bilirubin 0.6. AST 17, ALT 16, alkaline phosphatase 90. Troponin less than 0.017. Albumin is 3.2. Lactic acid is 1.5. Blood cultures were obtained. Procalcitonin is sent and pending. He is given a DuoNeb in 105 5 mg Solu- Medrol. Chest CT is obtained showing 1. right upper lung mass with invasion into the mediastinum. Diffuse interstitial changes noted around the mass within the right upper and right lower lung compatible with lymphangitic metastasis. 2. Mediastinal adenopathy is seen and a small right-sided pleural effusion is also noted. 3. There are no findings of pulmonary embolism. 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 He subsequently admitted to the medical floor observation status for management of his hypoxia and suspected pneumonia. His PCP is Dr. Kamara. He is a full code. Diagnosis: Stroke: No - Discharge Data Discharge Date: 03/18/21 Discharge Disposition: Home, Self-Care 01 Condition: Good - Referral to Home Health Primary Care Physician: Jim Kamara MD - Discharge Diagnosis/Problem(s) (1) Hypoxia SNOMED Code(s): 371140578 ICD Code: R09.02 - HYPOXEMIA Status: Acute Priority: High (2) History of COVID-19 SNOMED Code(s): 639108069698635140, 852036825241600028 ICD Code: Z86.16 - PERSONAL HISTORY OF COVID-19 Status: Chronic Priority: High (3) Lung mass SNOMED Code(s): 977718508 ICD Code: R91.8 - OTHER NONSPECIFIC ABNORMAL FINDING OF LUNG FIELD Status: Chronic Priority: High (4) History of tobacco use SNOMED Code(s): 954787007 ICD Code: Z87.891 - PERSONAL HISTORY OF NICOTINE DEPENDENCE Status: Chronic Priority: Medium - Patient Summary/Data Consults: Consultations 03/17/21 09:30 Consult to Case Management/Mortgage Protection Sales [CONS] Routine 03/17/21 09:34 OT Evaluation and Treatment [CONS] Routine PT Evaluation and Treatment [CONS] Routine Respiratory Care Assess and Treatment [CONS] Routine 03/17/21 09:36 Consult to Emergency Nurse [CONS] Routine Hospital Course: Assessment/Plan Comment:: Admission assessment - Day of admission 03/17/2021 * 75-year-old male who presented to ED on 03/17/2021 with shortness of breath and cough * History of heart murmur, hypertension, aortic stenosis, sleep apnea with BiPAP use, diverticulosis, GI bleed, hiatal hernia, arthritis, TIA, psoriasis, 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 * Underwent quarantine and was released yesterday (Wednesday03/16/2021) night after 10 days * Has been having ongoing dyspneic episodes and cough. He reports nasal drainage. * States he feels warm and does get flushed at times but this has been his normal. Reports mild swelling bilaterally. * Was not vaccinated for Covid. * Former smoker who quit in 2011 * History of CVA and is on Plavix however he stopped taking this as he is scheduled to have a biopsy of his lung this , 03/20/2021. * 12-lead EKG was obtained showing a sinus rhythm at 89 bpm with left axis deviation. * Labs obtained in ED: * WBC was mildly elevated at 10.34. * Hemoglobin 14.7. * Hematocrit 44.9. * Platelet 339,000. * Neutrophils are elevated at 65.7%. * Sodium is 147. * Potassium 3.8. * Chloride 109. * Carbon dioxide 27. * Anion gap is 14.8. * BUN is 22. Creatinine 1.4. GFR 50. * Glucose 104. * Calcium 8.7. * Bilirubin 0.6. * AST 17, ALT 16, alkaline phosphatase 90. * Troponin less than 0.017. * Albumin is 3.2. * Lactic acid is 1.5. * Blood cultures were obtained. * Procalcitonin is sent and pending. * Given a DuoNeb in 105 5 mg Solu-Medrol. * Chest CT is obtained showing: * 1. right upper lung mass with invasion into the mediastinum. Diffuse interstitial changes noted around the mass within the right upper and right lower lung compatible with lymphangitic metastasis. * 2. Mediastinal adenopathy is seen and a small right-sided pleural effusion is also noted. * 3. There are no findings of pulmonary embolism. * Subsequently admitted to the medical floor observation status for management of his hypoxia and suspected pneumonia. PLAN: Pneumonia (suspected) Leukocytosis History of COVID-19 Lung mass Hypoxia History of tobacco use SUSU treated with BiPAP Mediastinal adenopathy * Start 2gm rocephin * Start 500mg Azithromycin for 3 days * IS/Acapella * RT consultation * Mucinex * Steroid as ordered * Discussed risks and benefits of COVID treatment given recent Dx (11 days) and patient refused Remdisivir or further COVID treatment * Lung biopsy scheduled for 02/17/2021 in [place] * Caution with VTE prophylaxis * PT/OT * CM consultation * Procalcitonin obtained and pending * Blood cultures obtained and pending * Droplet isolation * Daily labs * Consider sputum culture * Continue home nocturnal BiPAP Hypoalbuminemia * Emergency Nurse consultation for hypoalbuminemia Renal insufficiency * Avoid nephrotoxic medications * Monitor need for IV fluids * Monitor daily labs Pedal edema Heart murmur Aortic stenosis Pleural effusion * Continue home HCTZ * Echocardiogram * Monitor I&Os * Check pro-BNP Osteoarthritis * No acute concerns HTN (hypertension) * Home HCTZ * Monitor vital signs GERD (gastroesophageal reflux disease) * No acute concerns History of GI bleed Hx-TIA (transient ischemic attack) * Continue to hold home plavix for upcoming lung biopsy Psoriasis * No acute concerns 03/18/2021 Day of discharge, the patient has been titrated to room air with O2 saturations in the mid to upper nineties. He still reports some shortness of breath however he states this has been ongoing for about the last month. White count was elevated to 16.55 however I contribute this to the dexamethasone that the patient was given. His O2 saturations resolved and he has been afebrile. His lung sounds are clear. He states he is feeling much better and is wanting to go home. Echocardiogram results are not yet reported so he will need to follow-up with his primary care provider regarding this. He is taking p.o. well and has not had any issues with his appetite. Procalcitonin level was unremarkable. All other labs from this morning were essentially unchanged. He will be discharged to home with a prescription for azithromycin x4 more days starting tomorrow. He will also be given a prescription for prednisone 40 mg daily x5 days as I suspect that the steroids helped him more than anything. He has appointment for a lung biopsy in 2 days time and he is verbalized that he will be keeping this appointment. He states he already has a follow-up appointment scheduled with his primary care provider and states that he will be keeping this appointment as well. - Patient Instructions Diet: Usual Diet as Tolerated Activity: As Tolerated Other/Special Instructions: Discharge to home. Continue using incentive spirometry and Acapella as directed. Begin taking azithromycin 1 tab daily for the next 4 days starting tomorrow. Begin taking prednisone 40 mg daily for the next 5 days starting tomorrow. Follow-up with Dr. Kamara as previously scheduled. Follow-up with Dr. Kamara regarding results of echocardiogram that was completed while in the hospital. - Discharge Plan *PRESCRIPTION DRUG MONITORING PROGRAM REVIEWED*: Not Applicable *COPY OF PRESCRIPTION DRUG MONITORING REPORT IN PATIENT ELAINE: Not Applicable Prescriptions/Med Rec: Azithromycin 250 mg PO DAILY #4 tablet predniSONE [Prednisone] 40 mg PO DAILY #10 tablet Home Medications: Home Meds Cholecalciferol (Vitamin D3) [Vitamin D] 5,000 units PO DAILY 07/19/17 [History] Clopidogrel [Plavix] 75 mg PO DAILY 07/19/17 [History] Cyanocobalamin (Vitamin B-12) [Vitamin B-12] 1,200 mcg PO DAILY 03/17/21 [Histo ry] L.acidoph,Paracasei, B.lactis [Probiotic] 1 each PO DAILY 03/17/21 [History] hydroCHLOROthiazide [Hydrochlorothiazide] 25 mg PO DAILY 03/17/21 [History] Aspirin [Ecotrin EC] 162 mg PO DAILY tab.ec 03/18/21 [Rx] Azithromycin 250 mg PO DAILY #4 tablet 03/18/21 [Rx] predniSONE [Prednisone] 40 mg PO DAILY #10 tablet 03/18/21 [Rx] Oxygen Therapy Mode: Room Air Referrals: Jim Kamara MD [Primary Care Provider] - 03/25/21 12:20 pm (Please check in at 12:20) - Discharge Summary/Plan Comment DC Time >30 min.: No - General Info Date of Service: 03/18/21 Functional Status: Reports: Pain Controlled, Tolerating Diet, Ambulating, Urinating, Incentive Spirometry - Review of Systems General: Reports: No Symptoms. Denies: Fever, Fatigue, Chills HEENT: Reports: No Symptoms Pulmonary: Reports: Shortness of Breath (States this has been going on for about the past month), Cough (Clear to green-tinged sputum), Sputum Cardiovascular: Reports: No Symptoms Gastrointestinal: Reports: No Symptoms Genitourinary: Reports: No Symptoms Musculoskeletal: Reports: No Symptoms Skin: Reports: No Symptoms Neurological: Reports: No Symptoms Psychiatric: Reports: No Symptoms - Patient Data Vitals - Most Recent: Last Vital Signs Temp 98.1 F 03/18/21 11:51 Pulse 85 03/18/21 11:51 Resp 20 03/18/21 11:51 BP 150/79 H 03/18/21 11:51 Pulse Ox 96 03/18/21 11:51 Weight - Most Recent: 258 lb I&O - Last 24 hours: Intake & Output 03/17/21 03/18/21 03/18/21 22:59 06:59 14:59 Intake Total 1270 1000 Balance 1270 1000 Lab Results - Last 24 hrs: Laboratory Results - last 24 hr 03/17/21 03/18/21 03/18/21 Range/Units 08:23 05:30 05:30 WBC 16.55 H (4.23-9.07) K/mm3 RBC 5.46 (4.63-6.08) M/mm3 Hgb 14.0 (13.7-17.5) gm/dl Hct 44.0 (40.1-51.0) % MCV 80.6 (79.0-92.2) fl MCH 25.6 L (25.7-32.2) pg MCHC 31.8 L (32.2-35.5) g/dl RDW Std Deviation 47.9 H (35.1-43.9) fL Plt Count 362 H (163-337) K/mm3 MPV 10.0 (9.4-12.3) fl Neut % (Auto) 84.7 H (34.0-67.9) % Lymph % (Auto) 7.8 L (21.8-53.1) % [place] % (Auto) 6.8 (5.3-12.2) % Eos % (Auto) 0.2 L (0.8-7.0) Baso % (Auto) 0.2 (0.1-1.2) % Neut # (Auto) 14.03 H (1.78-5.38) K/mm3 Lymph # (Auto) 1.29 L (1.32-3.57) K/mm3 [place] # (Auto) 1.12 H (0.30-0.82) K/mm3 Eos # (Auto) 0.03 L (0.04-0.54) K/mm3 Baso # (Auto) 0.03 (0.01-0.08) K/mm3 Manual Slide Review Abnormal smear Sodium 145 (136-145) mEq/L Potassium 4.3 (3.5-5.1) mEq/L Chloride 108 H (98-107) mEq/L Carbon Dioxide 22 (21-32) mEq/L Anion Gap 19.3 H (5-15) BUN 25 H (7-18) mg/dL Creatinine 1.4 H (0.7-1.3) mg/dL Est Cr Clr Drug Dosing 50.05 mL/min Estimated GFR (MDRD) 50 (>60) mL/min BUN/Creatinine Ratio 17.9 (14-18) Glucose 123 H (70-99) mg/dL Calcium 8.9 (8.5-10.1) mg/dL Magnesium 2.0 (1.8-2.4) mg/dL Total Bilirubin 0.3 (0.2-1.0) mg/dL AST 15 (15-37) U/L ALT 25 (16-63) U/L Alkaline Phosphatase 79 (46-116) U/L Total Protein 6.8 (6.4-8.2) g/dl Albumin 3.2 L (3.4-5.0) g/dl Globulin 3.6 gm/dL Albumin/Globulin Ratio 0.9 L (1-2) Procalcitonin 0.07 ng/mL Med Orders - Current: Current Medications Acetaminophen (Acetaminophen 325 Mg Tab) 650 mg PO Q4H PRN PRN Reason: Pain (Mild 1-3)/fever Albuterol (Albuterol 0.083% 2.5 Mg/3 Ml Neb Soln) 2.5 mg NEB Q2H PRN PRN Reason: SOB/wheezing Albuterol/Ipratropium (Albuterol/Ipratropium 3.0-0.5 Mg/3 Ml Neb Soln) 3 ml NEB QIDRT PRN PRN Reason: Shortness Of Breath/wheezing Last Admin: 03/17/21 20:24 Dose: 3 ml Documented by: Aspirin (Aspirin 325 Mg Tab.Ec) 162 mg PO DAILY [facility] Last Admin: 03/18/21 08:33 Dose: Not Given Documented by: Cholecalciferol (Cholecalciferol (Vitamin D3) 5,000 Unit Cap) 5,000 unit PO DAILY [facility] Last Admin: 03/18/21 08:29 Dose: 5,000 unit Documented by: Cyanocobalamin (Cyanocobalamin (Vitamin B12) 1,000 Mcg Tab) 1,000 mcg PO DAILY [facility] Last Admin: 03/18/21 08:29 Dose: 1,000 mcg Documented by: Dexamethasone (Dexamethasone 4 Mg Tab) 6 mg PO DAILY [facility] Last Admin: 03/18/21 08:30 Dose: 6 mg Documented by: Docusate Sodium (Docusate Sodium 100 Mg Cap) 100 mg PO Q12H PRN PRN Reason: Constipation Enoxaparin Sodium (Enoxaparin 40 Mg/0.4 Ml Syringe) 40 mg SUBCUT DAILY [facility] Last Admin: 03/18/21 08:32 Dose: 40 mg Documented by: Guaifenesin (Guaifenesin 600 Mg Tab.Er) 1,200 mg PO BID [facility] Last Admin: 03/18/21 08:30 Dose: 1,200 mg Documented by: Hydrochlorothiazide (Hydrochlorothiazide 25 Mg Tab) 25 mg PO DAILY [facility] Last Admin: 03/18/21 10:28 Dose: 25 mg Documented by: Azithromycin 500 mg/ Sodium (Chloride) 250 mls @ 250 mls/hr IV Q24H [facility] Stop: 03/19/21 10:44 Last Admin: 03/18/21 09:37 Dose: 250 mls/hr Documented by: Ceftriaxone Sodium 2 gm/ (Sodium Chloride) 100 mls @ 200 mls/hr IV Q24H [facility] Last Admin: 03/18/21 09:38 Dose: 200 mls/hr Documented by: Ondansetron HCl (Ondansetron 4 Mg/2 Ml Sdv) 4 mg IV Q6H PRN PRN Reason: Nausea/Vomiting Saccharomyces Boulardii (Saccharomyces Boulardii (Probiotic) 250 Mg Cap) 250 mg PO DAILY [facility] Last Admin: 03/18/21 08:29 Dose: 250 mg Documented by: Sodium Chloride (Sodium Chloride 0.9% 10 Ml Syringe) 10 ml FLUSH ASDIRECTED PRN PRN Reason: Keep Vein Open Last Admin: 03/17/21 05:27 Dose: 10 ml Documented by: Discontinued Medications Albuterol/Ipratropium (Albuterol/Ipratropium 3.0-0.5 Mg/3 Ml Neb Soln) 3 ml NEB ONETIME ONE Stop: 03/17/21 05:22 Last Admin: 03/17/21 05:37 Dose: 3 ml Documented by: Azithromycin (Azithromycin 500 Mg Advvial) Confirm Administered Dose 500 mg .ROUTE .STK-MED ONE Stop: 03/17/21 11:33 Last Admin: 03/17/21 12:46 Dose: Not Given Documented by: Ceftriaxone Sodium 2 gm/ (Sodium Chloride) 100 mls @ 200 mls/hr IV Q24H [facility] Last Admin: 03/17/21 11:31 Dose: Not Given Documented by: Methylprednisolone Sodium Succinate (Methylprednisolone Sodium Succinate 125 Mg/2 Ml Sdv) 125 mg IVPUSH ONETIME ONE Stop: 03/17/21 05:22 Last Admin: 03/17/21 05:40 Dose: 125 mg Documented by: - Exam Quality Assessment: Reports: DVT Prophylaxis (Did receive Lovenox while in the hospital; patient does take Plavix however this has been held due to upcoming lung biopsy). Denies: Supplemental Oxygen (On room air with saturations in the mid to upper nineties) General: Reports: Alert, Oriented, Cooperative, No Acute Distress HEENT: Reports: Pupils Equal Neck: Reports: Supple, Trachea Midline Lungs: Reports: Clear to Auscultation, Normal Respiratory Effort Cardiovascular: Reports: Regular Rate, Regular Rhythm, Murmurs (Grade 3 systolic murmur) GI/Abdominal Exam: Normal Bowel Sounds, Soft, Non-Tender, No Distention (Male) Exam: Deferred Rectal (Males) Exam: Deferred Back Exam: Reports: Normal Inspection, Full Range of Motion Extremities: Normal Inspection, Normal Range of Motion, Non-Tender, No Pedal Edema, Normal Capillary Refill Skin: Reports: Warm, Dry, Intact, Other (Does have psoriasis) Neurological: Reports: No New Focal Deficit Psy/Mental Status: Reports: Alert, Normal Affect, Normal Mood <Austin Boateng - Last Filed: 03/18/21 15:34> Discharge Summary - Hospital Course HPI Initial Comments: patient requested to be discharged today as he was no longer hypoxic declined therapeutic treatment for COVID 19 Will need close follow up with PCP Has outpatient lung bx scheduled later this week Austin Boateng - Referral to Home Health Primary Care Physician: Jim Kamara MD - Patient Summary/Data Consults: Consultations 03/17/21 09:30 Consult to Case Management/Mortgage Protection Sales [CONS] Routine 03/17/21 09:34 OT Evaluation and Treatment [CONS] Routine PT Evaluation and Treatment [CONS] Routine Respiratory Care Assess and Treatment [CONS] Routine 03/17/21 09:36 Consult to Emergency Nurse [CONS] Routine - Patient Data Vitals - Most Recent: Last Vital Signs Temp 98.1 F 03/18/21 11:51 Pulse 85 03/18/21 11:51 Resp 20 03/18/21 11:51 BP 150/79 H 03/18/21 11:51 Pulse Ox 96 03/18/21 11:51 I&O - Last 24 hours: Intake & Output 03/18/21 03/18/21 03/18/21 06:59 14:59 22:59 Intake Total 1000 240 Balance 1000 240 Lab Results - Last 24 hrs: Laboratory Results - last 24 hr 03/17/21 03/18/21 03/18/21 Range/Units 08:23 05:30 05:30 WBC 16.55 H (4.23-9.07) K/mm3 RBC 5.46 (4.63-6.08) M/mm3 Hgb 14.0 (13.7-17.5) gm/dl Hct 44.0 (40.1-51.0) % MCV 80.6 (79.0-92.2) fl MCH 25.6 L (25.7-32.2) pg MCHC 31.8 L (32.2-35.5) g/dl RDW Std Deviation 47.9 H (35.1-43.9) fL Plt Count 362 H (163-337) K/mm3 MPV 10.0 (9.4-12.3) fl Neut % (Auto) 84.7 H (34.0-67.9) % Lymph % (Auto) 7.8 L (21.8-53.1) % [place] % (Auto) 6.8 (5.3-12.2) % Eos % (Auto) 0.2 L (0.8-7.0) Baso % (Auto) 0.2 (0.1-1.2) % Neut # (Auto) 14.03 H (1.78-5.38) K/mm3 Lymph # (Auto) 1.29 L (1.32-3.57) K/mm3 [place] # (Auto) 1.12 H (0.30-0.82) K/mm3 Eos # (Auto) 0.03 L (0.04-0.54) K/mm3 Baso # (Auto) 0.03 (0.01-0.08) K/mm3 Manual Slide Review Abnormal smear Sodium 145 (136-145) mEq/L Potassium 4.3 (3.5-5.1) mEq/L Chloride 108 H (98-107) mEq/L Carbon Dioxide 22 (21-32) mEq/L Anion Gap 19.3 H (5-15) BUN 25 H (7-18) mg/dL Creatinine 1.4 H (0.7-1.3) mg/dL Est Cr Clr Drug Dosing 50.05 mL/min Estimated GFR (MDRD) 50 (>60) mL/min BUN/Creatinine Ratio 17.9 (14-18) Glucose 123 H (70-99) mg/dL Calcium 8.9 (8.5-10.1) mg/dL Magnesium 2.0 (1.8-2.4) mg/dL Total Bilirubin 0.3 (0.2-1.0) mg/dL AST 15 (15-37) U/L ALT 25 (16-63) U/L Alkaline Phosphatase 79 (46-116) U/L Total Protein 6.8 (6.4-8.2) g/dl Albumin 3.2 L (3.4-5.0) g/dl Globulin 3.6 gm/dL Albumin/Globulin Ratio 0.9 L (1-2) Procalcitonin 0.07 ng/mL Med Orders - Current: Current Medications Discontinued Medications Acetaminophen (Acetaminophen 325 Mg Tab) 650 mg PO Q4H PRN PRN Reason: Pain (Mild 1-3)/fever Albuterol (Albuterol 0.083% 2.5 Mg/3 Ml Neb Soln) 2.5 mg NEB Q2H PRN PRN Reason: SOB/wheezing Albuterol/Ipratropium (Albuterol/Ipratropium 3.0-0.5 Mg/3 Ml Neb Soln) 3 ml NEB ONETIME ONE Stop: 03/17/21 05:22 Last Admin: 03/17/21 05:37 Dose: 3 ml Documented by: Albuterol/Ipratropium (Albuterol/Ipratropium 3.0-0.5 Mg/3 Ml Neb Soln) 3 ml NEB QIDRT PRN PRN Reason: Shortness Of Breath/wheezing Last Admin: 03/17/21 20:24 Dose: 3 ml Documented by: Aspirin (Aspirin 325 Mg Tab.Ec) 162 mg PO DAILY [facility] Last Admin: 03/18/21 08:33 Dose: Not Given Documented by: Azithromycin (Azithromycin 500 Mg Advvial) Confirm Administered Dose 500 mg .ROUTE .STK-MED ONE Stop: 03/17/21 11:33 Last Admin: 03/17/21 12:46 Dose: Not Given Documented by: Cholecalciferol (Cholecalciferol (Vitamin D3) 5,000 Unit Cap) 5,000 unit PO D AILY [facility] Last Admin: 03/18/21 08:29 Dose: 5,000 unit Documented by: Cyanocobalamin (Cyanocobalamin (Vitamin B12) 1,000 Mcg Tab) 1,000 mcg PO DAILY [facility] Last Admin: 03/18/21 08:29 Dose: 1,000 mcg Documented by: Dexamethasone (Dexamethasone 4 Mg Tab) 6 mg PO DAILY [facility] Last Admin: 03/18/21 08:30 Dose: 6 mg Documented by: Docusate Sodium (Docusate Sodium 100 Mg Cap) 100 mg PO Q12H PRN PRN Reason: Constipation Enoxaparin Sodium (Enoxaparin 40 Mg/0.4 Ml Syringe) 40 mg SUBCUT DAILY [facility] Last Admin: 03/18/21 08:32 Dose: 40 mg Documented by: Guaifenesin (Guaifenesin 600 Mg Tab.Er) 1,200 mg PO BID [facility] Last Admin: 03/18/21 08:30 Dose: 1,200 mg Documented by: Hydrochlorothiazide (Hydrochlorothiazide 25 Mg Tab) 25 mg PO DAILY [facility] Last Admin: 03/18/21 10:28 Dose: 25 mg Documented by: Ceftriaxone Sodium 2 gm/ (Sodium Chloride) 100 mls @ 200 mls/hr IV Q24H [facility] Last Admin: 03/17/21 11:31 Dose: Not Given Documented by: Azithromycin 500 mg/ Sodium (Chloride) 250 mls @ 250 mls/hr IV Q24H [facility]1983 Stop: 03/19/21 10:44 Last Admin: 03/18/21 09:37 Dose: 250 mls/hr Documented by: Ceftriaxone Sodium 2 gm/ (Sodium Chloride) 100 mls @ 200 mls/hr IV Q24H [facility] Last Admin: 03/18/21 09:38 Dose: 200 mls/hr Documented by: Methylprednisolone Sodium Succinate (Methylprednisolone Sodium Succinate 125 Mg/2 Ml Sdv) 125 mg IVPUSH ONETIME ONE Stop: 03/17/21 05:22 Last Admin: 03/17/21 05:40 Dose: 125 mg Documented by: Ondansetron HCl (Ondansetron 4 Mg/2 Ml Sdv) 4 mg IV Q6H PRN PRN Reason: Nausea/Vomiting Saccharomyces Boulardii (Saccharomyces Boulardii (Probiotic) 250 Mg Cap) 250 mg PO DAILY [facility] Last Admin: 03/18/21 08:29 Dose: 250 mg Documented by: Sodium Chloride (Sodium Chloride 0.9% 10 Ml Syringe) 10 ml FLUSH ASDIRECTED PRN PRN Reason: Keep Vein Open Last Admin: 03/17/21 05:27 Dose: 10 ml Documented by:
== END 2021-03-18 14:02 | disposition home or self-care (01) ==
LOC: JD.ED 04:46 → JD.MS 08:34
PROVIDERS: ADMIT Hospitalist; ATTEND Hospitalist
DX: R09.02 Hypoxemia (principal); R91.8 Other nonspecific abnormal finding of lung field; I10 Essential (primary) hypertension; G47.33 Obstructive sleep apnea (adult) (pediatric); D72.829 Elevated white blood cell count, unspecified; R59.0 Localized enlarged lymph nodes; E88.09 Other disorders of plasma-protein metabolism, not elsewhere classified; N17.9 Acute kidney failure, unspecified; I35.0 Nonrheumatic aortic (valve) stenosis; M19.90 Unspecified osteoarthritis, unspecified site; J90 Pleural effusion, not elsewhere classified; L40.9 Psoriasis, unspecified; E66.9 Obesity, unspecified; Z68.36 Body mass index [BMI] 36.0-36.9, adult; Z86.16 Personal history of COVID-19; Z87.891 Personal history of nicotine dependence; Z86.73 Personal history of transient ischemic attack (TIA), and cerebral infarction without residual deficits; Z79.01 Long term (current) use of anticoagulants
CPT/HCPCS: 36415; 71275; 80053; 83605; 83735; 83880; 84145; 84484; 85025; 85379; 87040; 93005; 93306; 94640; 94667; 94668; 94760; 96365; 96366; 96367; 96372; 96374; 96376; 97161; 99285; A9270; G0378; J0456; J0696; J1650; J2930; J7050; J8540; 93010; 96375; 99217; 99220; J7620-GY

== ENCOUNTER 2022-05-01 00:06 | Inpatient (IN) | payer MEDICARE, OTHER ==
[2022-05-01] MEDS ORDERED: HYDROmorphone 0.5 MG/0.5 ML Syringe IVPUSH ONE ×2 (01:11→02:12)
[2022-05-01] MEDS ORDERED: Sodium Chloride 0.9% 1,000 ML IV ONE (01:11)
[2022-05-01] MEDS ORDERED: Cefepime 2 GM in Sodium Chloride 0.9% 50 ML IV ONE (02:24)
[2022-05-01] MEDS ORDERED: metroNIDAZOLE/Normal Saline 500 MG in Premix Bag 1 BAG IV ONE (02:24)
[2022-05-01] MEDS ORDERED: HYDROmorphone 1 MG/ML Syringe IVPUSH ONE (02:40)
[2022-05-01] MEDS ORDERED: Ondansetron 4 MG/2 ML SDV ONE (03:49)
[2022-05-01] MEDS ORDERED: Rocuronium 50 MG/5 ML Vial ONE (03:49)
[2022-05-01] MEDS ORDERED: Ketamine 500 mg/10 ML MDV ONE (03:50)
[2022-05-01] MEDS ORDERED: fentaNYL 250 MCG/5 ML SDV ONE (03:50)
[2022-05-01] MEDS ORDERED: Midazolam 1 MG/ML 2 ML SDV ONE (03:50)
[2022-05-01] MEDS ORDERED: fentaNYL 100 MCG/2 ML SDV IVPUSH PRN (05:30)
[2022-05-01] MEDS ORDERED: Ondansetron 4 MG/2 ML SDV IVPUSH PRN (05:30)
[2022-05-01] MEDS ORDERED: HYDROmorphone 0.5 MG/0.5 ML Syringe IVPUSH PRN (05:30)
[2022-05-01] MEDS ORDERED: Sugammadex Sodium 200 MG/2 ML VIAL ONE (06:22)
[2022-05-01] MEDS ORDERED: Hydrocortisone Sodium Succinate 100 MG/2 ML SDV ONE (06:22)
[2022-05-01] MEDS ORDERED: ePHEDrine 50 MG/ML SDV ONE (07:33)
[2022-05-01] MEDS ORDERED: Phenylephrine HCl In 0.9% NaCl 1 MG/10 ML Vial ONE (07:33)
[2022-05-01] MEDS: Sodium Chloride 0.9% 1,000 ML IV SCH ×2 (09:34→19:13)
[2022-05-01] MEDS ORDERED: Cefepime 2 GM in Sodium Chloride 0.9% 50 ML IV SCH (10:30)
[2022-05-01] MEDS ORDERED: metroNIDAZOLE 500 MG Tab PO SCH (11:00)
[2022-05-01] MEDS: HYDROmorphone 0.5 MG/0.5 ML Syringe IVPUSH PRN ×5 (12:47→22:28)
[2022-05-01] MEDS ORDERED: Benzocaine/Cetylpyridinium/Menthol Lozenge MUCMEM PRN (16:33)
[2022-05-01] MEDS ORDERED: Acetaminophen 650 MG Supp RECTAL PRN (16:36)
[2022-05-01] MEDS: Phenol 1.4% Oral Spray 177 ML Bottle MUCMEM PRN ×2 (16:56→19:30)
[2022-05-01] MEDS: Scopolamine 1.5 MG Transdermal Patch TRDERM SCH (16:56)
[2022-05-01] MEDS: metroNIDAZOLE/Normal Saline 500 MG in Premix Bag 1 BAG IV SCH (19:14)
[2022-05-01] MEDS ORDERED: Sodium Bicarbonate 150 MEQ in Dextrose 5% in Water 1,000 ML IV ONE ×2 (19:45)
[2022-05-01] MEDS: Heparin Sodium 5,000 Units/ML Vial SUBCUT SCH (21:25)
[2022-05-01] MEDS: Cefepime 2 GM in Sodium Chloride 0.9% 50 ML IV SCH (22:26)
[2022-05-01] MEDS: Sodium Chloride 0.9% 10 ML Syringe FLUSH PRN (22:27)
[2022-05-02] MEDS: HYDROmorphone 1 MG/ML Syringe IVPUSH PRN (01:10)
[2022-05-02] MEDS: metroNIDAZOLE/Normal Saline 500 MG in Premix Bag 1 BAG IV SCH ×3 (03:06→19:40)
[2022-05-02] MEDS: Heparin Sodium 5,000 Units/ML Vial SUBCUT SCH ×3 (05:04→19:45)
[2022-05-02] MEDS: HYDROmorphone 0.5 MG/0.5 ML Syringe IVPUSH PRN ×5 (05:05→21:57)
[2022-05-02] MEDS ORDERED: Pantoprazole 40 MG Tab.CR PO SCH (06:00)
[2022-05-02] MEDS: Lactated Ringers 1,000 ML IV SCH ×3 (06:41→22:29)
[2022-05-02] MEDS ORDERED: Magnesium Sulfate/Water 2 GM in Premix Bag 1 BAG IV ONE (08:23)
[2022-05-02] MEDS: Pantoprazole 40 MG Vial IVPUSH SCH (08:38)
[2022-05-02] MEDS: fentaNYL 25 MCG/HR Transdermal Patch TRDERM SCH (08:44)
[2022-05-02] MEDS: Cefepime 2 GM in Sodium Chloride 0.9% 50 ML IV SCH ×2 (10:40→21:53)
[2022-05-02] MEDS: LORazepam 2 MG/ML SDV IVPUSH PRN (12:34)
[2022-05-03] MEDS: HYDROmorphone 0.5 MG/0.5 ML Syringe IVPUSH PRN ×4 (01:51→17:14)
[2022-05-03] MEDS: metroNIDAZOLE/Normal Saline 500 MG in Premix Bag 1 BAG IV SCH ×3 (03:55→19:35)
[2022-05-03] MEDS: Heparin Sodium 5,000 Units/ML Vial SUBCUT SCH ×3 (03:57→19:40)
[2022-05-03] MEDS: HYDROmorphone 1 MG/ML Syringe IVPUSH PRN (06:23)
[2022-05-03] MEDS: Lactated Ringers 1,000 ML IV SCH (06:31)
[2022-05-03] MEDS: D5 1/2 NS w/ 20 mEq/L KCl 1,000 ML IV SCH ×2 (08:16→21:20)
[2022-05-03] MEDS: Pantoprazole 40 MG Vial IVPUSH SCH (08:17)
[2022-05-03] MEDS: Hydrochlorothiazide 25 MG Tab PO SCH (08:17)
[2022-05-03] MEDS: Aspirin 81 MG Tab.Chew PO SCH (08:17)
[2022-05-03] MEDS: Cefepime 2 GM in Sodium Chloride 0.9% 50 ML IV SCH ×2 (10:54→21:31)
[2022-05-03] MEDS: LORazepam 2 MG/ML SDV IVPUSH PRN ×2 (11:07→17:15)
[2022-05-03] MEDS ORDERED: Acetaminophen 325 MG Tab PO PRN (18:08)
[2022-05-03] MEDS ORDERED: HYDROmorphone 0.5 MG/0.5 ML Syringe IVPUSH PRN ×2 (18:09→18:10)
[2022-05-03] MEDS: Sodium Chloride 0.9% 10 ML Syringe FLUSH PRN (19:34)
[2022-05-04] MEDS: metroNIDAZOLE/Normal Saline 500 MG in Premix Bag 1 BAG IV SCH ×3 (03:22→20:13)
[2022-05-04] MEDS: LORazepam 2 MG/ML SDV IVPUSH PRN (03:23)
[2022-05-04] MEDS: Heparin Sodium 5,000 Units/ML Vial SUBCUT SCH ×3 (03:28→20:13)
[2022-05-04] MEDS: Hydrochlorothiazide 25 MG Tab PO SCH (08:12)
[2022-05-04] MEDS: Aspirin 81 MG Tab.Chew PO SCH (08:12)
[2022-05-04] MEDS: Pantoprazole 40 MG Vial IVPUSH SCH (08:13)
[2022-05-04] MEDS: D5 1/2 NS w/ 20 mEq/L KCl 1,000 ML IV SCH ×2 (10:34→23:40)
[2022-05-04] MEDS: Cefepime 2 GM in Sodium Chloride 0.9% 50 ML IV SCH ×2 (10:34→23:30)
[2022-05-04] MEDS ORDERED: Levofloxacin/Dextrose 5%-Water 750 MG in Premix Bag 1 BAG IV SCH ×4 (12:00)
[2022-05-04] MEDS ORDERED: VANCOmycin 1.5 GM/300 ML 1.5 GM in Premix Bag 1 BAG IV ONE (13:30)
[2022-05-04] MEDS: Scopolamine 1.5 MG Transdermal Patch TRDERM SCH (16:38)
[2022-05-05] MEDS: Heparin Sodium 5,000 Units/ML Vial SUBCUT SCH ×3 (03:44→20:23)
[2022-05-05] MEDS: metroNIDAZOLE/Normal Saline 500 MG in Premix Bag 1 BAG IV SCH ×3 (03:45→18:03)
[2022-05-05] MEDS ORDERED: Simethicone 80 MG Tab.Chew PO ONE (07:30)
[2022-05-05] MEDS: Hydrochlorothiazide 25 MG Tab PO SCH (09:13)
[2022-05-05] MEDS: Aspirin 81 MG Tab.Chew PO SCH (09:14)
[2022-05-05] MEDS: fentaNYL 25 MCG/HR Transdermal Patch TRDERM SCH (09:18)
[2022-05-05] MEDS: Pantoprazole 40 MG Vial IVPUSH SCH (09:20)
[2022-05-05] MEDS ORDERED: Lidocaine/EPINEPHrine/Tetracaine Soln 1 ML TOP ONE (11:45)
[2022-05-05] MEDS: Cefepime 2 GM in Sodium Chloride 0.9% 50 ML IV SCH ×2 (11:54→22:37)
[2022-05-05] MEDS ORDERED: VANCOmycin 1.25 GM/250 ML 1.25 GM in Premix Bag 1 BAG IV SCH (13:30)
[2022-05-05] MEDS: D5 1/2 NS w/ 20 mEq/L KCl 1,000 ML IV SCH (13:49)
[2022-05-06] MEDS: metroNIDAZOLE/Normal Saline 500 MG in Premix Bag 1 BAG IV SCH ×3 (03:00→18:50)
[2022-05-06] MEDS: Heparin Sodium 5,000 Units/ML Vial SUBCUT SCH ×3 (03:00→18:55)
[2022-05-06] MEDS: D5 1/2 NS w/ 20 mEq/L KCl 1,000 ML IV SCH (03:01)
[2022-05-06] MEDS ORDERED: oxyCODONE 5 MG Tab PO PRN (07:33)
[2022-05-06] MEDS: Cefepime 2 GM in Sodium Chloride 0.9% 50 ML IV SCH ×2 (11:43→21:46)
[2022-05-06] MEDS: Pantoprazole 40 MG Vial IVPUSH SCH (11:44)
[2022-05-06] MEDS: Aspirin 81 MG Tab.Chew PO SCH (11:45)
[2022-05-06] MEDS: Hydrochlorothiazide 25 MG Tab PO SCH (11:45)
[2022-05-07] MEDS: metroNIDAZOLE/Normal Saline 500 MG in Premix Bag 1 BAG IV SCH ×3 (02:16→19:48)
[2022-05-07] MEDS: Heparin Sodium 5,000 Units/ML Vial SUBCUT SCH ×3 (02:45→19:48)
[2022-05-07] MEDS: Pantoprazole 40 MG Vial IVPUSH SCH (09:56)
[2022-05-07] MEDS: Hydrochlorothiazide 25 MG Tab PO SCH (09:56)
[2022-05-07] MEDS: Aspirin 81 MG Tab.Chew PO SCH (09:56)
[2022-05-07] MEDS: Cefepime 2 GM in Sodium Chloride 0.9% 50 ML IV SCH ×2 (09:59→23:32)
[2022-05-07] MEDS ORDERED: Furosemide 20 MG/2 ML VIAL IVPUSH ONE (11:57)
[2022-05-08] MEDS: Heparin Sodium 5,000 Units/ML Vial SUBCUT SCH ×3 (02:52→19:26)
[2022-05-08] MEDS: metroNIDAZOLE/Normal Saline 500 MG in Premix Bag 1 BAG IV SCH ×3 (02:52→19:26)
[2022-05-08] MEDS: Hydrochlorothiazide 25 MG Tab PO SCH (08:45)
[2022-05-08] MEDS: Aspirin 81 MG Tab.Chew PO SCH (08:45)
[2022-05-08] MEDS: Pantoprazole 40 MG Vial IVPUSH SCH (08:46)
[2022-05-08] MEDS: Clopidogrel 75 MG Tab PO SCH (08:47)
[2022-05-08] MEDS: fentaNYL 25 MCG/HR Transdermal Patch TRDERM SCH (09:45)
[2022-05-08] MEDS: Cefepime 2 GM in Sodium Chloride 0.9% 50 ML IV SCH ×2 (10:13→22:30)
[2022-05-08] MEDS ORDERED: Furosemide 20 MG/2 ML VIAL IVPUSH ONE (11:15)
[2022-05-09] MEDS: metroNIDAZOLE/Normal Saline 500 MG in Premix Bag 1 BAG IV SCH (02:47)
[2022-05-09] MEDS: Heparin Sodium 5,000 Units/ML Vial SUBCUT SCH ×3 (02:47→20:43)
[2022-05-09] MEDS: Clopidogrel 75 MG Tab PO SCH (08:19)
[2022-05-09] MEDS: Hydrochlorothiazide 25 MG Tab PO SCH (08:19)
[2022-05-09] MEDS: Aspirin 81 MG Tab.Chew PO SCH (08:19)
[2022-05-09] MEDS: Pantoprazole 40 MG Vial IVPUSH SCH (08:20)
[2022-05-09] MEDS: Dronabinol 2.5 MG Cap PO SCH ×2 (10:58→16:06)
[2022-05-09] MEDS ORDERED: Ondansetron 4 MG Tab.DIS PO PRN (12:53)
[2022-05-10] MEDS: Heparin Sodium 5,000 Units/ML Vial SUBCUT SCH ×3 (04:30→21:12)
[2022-05-10] MEDS: Pantoprazole 40 MG Tab.CR PO SCH (06:14)
[2022-05-10] MEDS: Furosemide 20 MG Tab PO SCH (09:22)
[2022-05-10] MEDS: Hydrochlorothiazide 25 MG Tab PO SCH (09:22)
[2022-05-10] MEDS: Clopidogrel 75 MG Tab PO SCH (09:22)
[2022-05-10] MEDS: Aspirin 81 MG Tab.Chew PO SCH (09:22)
[2022-05-10] MEDS: Dronabinol 2.5 MG Cap PO SCH ×2 (10:34→15:52)
[2022-05-11] MEDS: Pantoprazole 40 MG Tab.CR PO SCH ×2 (04:39→06:24)
[2022-05-11] MEDS: Heparin Sodium 5,000 Units/ML Vial SUBCUT SCH ×2 (04:39→12:38)
[2022-05-11] MEDS: Clopidogrel 75 MG Tab PO SCH (09:30)
[2022-05-11] MEDS: Furosemide 20 MG Tab PO SCH (09:30)
[2022-05-11] MEDS: Aspirin 81 MG Tab.Chew PO SCH (09:30)
[2022-05-11] MEDS: Hydrochlorothiazide 25 MG Tab PO SCH (09:30)
[2022-05-11] MEDS: Dronabinol 2.5 MG Cap PO SCH (09:30)
[2022-05-11 12:15] VITALS: BP 93/56; PULSE 105
== END 2022-05-11 14:48 | disposition home health service (06) | DRG 854 ==
LOC: JD.ED 00:06 → JD.SDS 03:31 → JD.ICU 10:01 → JD.MS 05-06 14:18
PROVIDERS: ADMIT Surgery; ATTEND Surgery
PROC: 02HV33Z Insertion of Infusion Device into Superior Vena Cava, Percutaneous Approach (ICD-10-PCS; principal; 2022-05-01)
PROC: 0DBN0ZZ Excision of Sigmoid Colon, Open Approach (ICD-10-PCS; 2022-05-01)
PROC: 0D1B0Z4 Bypass Ileum to Cutaneous, Open Approach (ICD-10-PCS; 2022-05-01)
DX: A41.51 Sepsis due to Escherichia coli [E. coli] (principal); K57.20 Diverticulitis of large intestine with perforation and abscess without bleeding; C34.91 Malignant neoplasm of unspecified part of right bronchus or lung; C34.81 Malignant neoplasm of overlapping sites of right bronchus and lung; N18.30 Chronic kidney disease, stage 3 unspecified; M17.0 Bilateral primary osteoarthritis of knee; K21.9 Gastro-esophageal reflux disease without esophagitis; M19.90 Unspecified osteoarthritis, unspecified site; E66.9 Obesity, unspecified; I35.0 Nonrheumatic aortic (valve) stenosis; H54.7 Unspecified visual loss; A41.9 Sepsis, unspecified organism; I12.9 Hypertensive chronic kidney disease with stage 1 through stage 4 chronic kidney disease, or unspecified chronic kidney disease; G47.33 Obstructive sleep apnea (adult) (pediatric); K44.9 Diaphragmatic hernia without obstruction or gangrene; Z86.73 Personal history of transient ischemic attack (TIA), and cerebral infarction without residual deficits; Z85.118 Personal history of other malignant neoplasm of bronchus and lung; M17.10 Unilateral primary osteoarthritis, unspecified knee; R41.0 Disorientation, unspecified; C79.9 Secondary malignant neoplasm of unspecified site; Z79.02 Long term (current) use of antithrombotics/antiplatelets; Z79.82 Long term (current) use of aspirin; Z79.899 Other long term (current) drug therapy; Z88.0 Allergy status to penicillin; Z86.16 Personal history of COVID-19; Z86.19 Personal history of other infectious and parasitic diseases; Z87.891 Personal history of nicotine dependence; Z68.30 Body mass index [BMI] 30.0-30.9, adult
CPT/HCPCS: 36415; 36569; 44144; 51702; 71045; 74176; 80053; 83690; 84484; 85025; 86140; 86850; 86900; 86901; 87040 ×2; 87070; 87075; 87077 ×2; 87186 ×2; 87205; 93005; 96361; 96365; 96367; 96375; 96376; 99285; J0692; J1170 ×4; J1720; J2250; J2405; J3010 ×2; J3490 ×3; J7030 ×2; P9045; 00840; 51798; 74022; 74022-26; 80048; 80202; 83605; 83735; 85007; 85027; 85610; 88305; 88307; 93010; 94760; 97110-GP; 97116-GP; 97162-GP; 97166-GO; 97530-GO; 97530-GP; 99100; A9270-GY; C9113; J1644; J1940; J2060; J3370; J3475; J3480; J7050; J7060; J7120; Q0167

== ENCOUNTER 2022-08-02 20:21 | Inpatient (IN) | payer MEDICARE, OTHER ==
[2022-08-02 21:29] LABS: CORONAVIRUS COVID-19 NAA NEGATIVE (NEGATIVE)
[2022-08-02] MEDS: Sodium Chloride 0.9% 1,000 ML IV SCH (22:43)
[2022-08-02] MEDS ORDERED: Magnesium Sulfate/Water 2 GM in Premix Bag 1 BAG IV ONE (23:06)
[2022-08-02] MEDS ORDERED: cefTRIAXone 1 GM in Sodium Chloride 0.9% 100 ML IV STA (23:19)
[2022-08-02] MEDS ORDERED: Azithromycin 500 MG in Sodium Chloride 0.9% 250 ML IV STA (23:19)
[2022-08-03] MEDS ORDERED: Sodium Chloride 0.9% 1,000 ML IV SCH (02:45)
[2022-08-03] MEDS ORDERED: cefTRIAXone 1 GM in Sodium Chloride 0.9% 100 ML IV SCH ×2 (03:00→21:00)
[2022-08-03] MEDS: Sodium Chloride 0.9% 1,000 ML IV SCH (08:36)
[2022-08-03] MEDS ORDERED: Ondansetron 4 MG Tab.DIS PO PRN (09:36)
[2022-08-03] MEDS ORDERED: Acetaminophen 325 MG Tab PO PRN (09:36)
[2022-08-03] MEDS ORDERED: Sodium Chloride 0.9% 10 ML Syringe FLUSH PRN (09:36)
[2022-08-03] MEDS ORDERED: Docusate Sodium 100 MG Cap PO PRN (09:36)
[2022-08-03] MEDS ORDERED: Ondansetron 4 MG/2 ML SDV IV PRN (09:36)
[2022-08-03] MEDS ORDERED: Enoxaparin 40 MG/0.4 ML Syringe SUBCUT SCH (09:45)
[2022-08-03] MEDS ORDERED: Cefepime 2 GM in Sodium Chloride 0.9% 50 ML IV SCH (09:45)
[2022-08-03] MEDS ORDERED: Furosemide 40 MG/4 ML VIAL IVPUSH ONE (10:57)
[2022-08-03] MEDS ORDERED: VANCOmycin 750 MG/150 ML 750 MG in Premix Bag 1 BAG IV SCH (11:00)
[2022-08-03] MEDS ORDERED: Furosemide 40 MG/4 ML VIAL ONE (11:02)
[2022-08-03 11:54] VITALS: BP 139/88; PULSE 151
[2022-08-03] MEDS ORDERED: LORazepam 2 MG/ML SDV IVPUSH ONE ×2 (12:26→12:53)
[2022-08-03] MEDS ORDERED: Morphine 10 MG/ML SDV IVPUSH ONE (12:45)
[2022-08-03] MEDS: Morphine 4 MG/ML Syringe ONE ×2 (12:50→13:25)
[2022-08-03] MEDS ORDERED: Morphine 4 MG/ML Syringe IVPUSH ONE (13:00)
[2022-08-03] MEDS ORDERED: Morphine 4 MG/ML Syringe IVPUSH PRN (13:26)
[2022-08-03] MEDS ORDERED: LORazepam 2 MG/ML SDV IVPUSH SCH (13:30)
[2022-08-03] MEDS ORDERED: Azithromycin 250 MG in Sodium Chloride 0.9% 250 ML IV SCH ×2 (18:00→22:00)
[2022-08-03] MEDS ORDERED: Sodium Chloride 0.9% 10 ML Syringe FLUSH SCH (21:00)
[2022-08-04] MEDS ORDERED: Hydrochlorothiazide 25 MG Tab PO SCH (09:00)
[2022-08-04] MEDS ORDERED: Clopidogrel 75 MG Tab PO SCH (09:00)
[2022-08-04] MEDS ORDERED: Saccharomyces Boulardii (Probiotic) 250 MG Cap PO SCH (09:00)
[2022-08-04] MEDS ORDERED: Aspirin 81 MG Tab.EC PO SCH (09:00)
== END 2022-08-03 14:10 | disposition expired | DRG 871 ==
LOC: JD.ED 20:21 → JD.MS 08-03 00:11
PROVIDERS: ADMIT Hospitalist; ATTEND Hospitalist
PROC: 5A09357 Assistance with Respiratory Ventilation, Less than 24 Consecutive Hours, Continuous Positive Airway Pressure (ICD-10-PCS; principal; 2022-08-03)
DX: A41.9 Sepsis, unspecified organism (principal); J91.8 Pleural effusion in other conditions classified elsewhere; J18.9 Pneumonia, unspecified organism; E83.42 Hypomagnesemia; J96.21 Acute and chronic respiratory failure with hypoxia; Z99.81 Dependence on supplemental oxygen; J90 Pleural effusion, not elsewhere classified; N39.0 Urinary tract infection, site not specified; C34.91 Malignant neoplasm of unspecified part of right bronchus or lung; Z51.5 Encounter for palliative care; N18.30 Chronic kidney disease, stage 3 unspecified; G47.33 Obstructive sleep apnea (adult) (pediatric); Z66 Do not resuscitate; H54.7 Unspecified visual loss; Z96.651 Presence of right artificial knee joint; K44.9 Diaphragmatic hernia without obstruction or gangrene; Z20.822 Contact with and (suspected) exposure to COVID-19; K57.90 Diverticulosis of intestine, part unspecified, without perforation or abscess without bleeding; M19.90 Unspecified osteoarthritis, unspecified site; M10.9 Gout, unspecified; E66.9 Obesity, unspecified; Z86.16 Personal history of COVID-19; Z86.19 Personal history of other infectious and parasitic diseases; Z86.73 Personal history of transient ischemic attack (TIA), and cerebral infarction without residual deficits; Z88.0 Allergy status to penicillin; Z85.118 Personal history of other malignant neoplasm of bronchus and lung; Z79.02 Long term (current) use of antithrombotics/antiplatelets; Z79.82 Long term (current) use of aspirin; Z79.899 Other long term (current) drug therapy; Z86.010 Personal history of colon polyps; Z87.891 Personal history of nicotine dependence; Z68.23 Body mass index [BMI] 23.0-23.9, adult
CPT/HCPCS: 0240U; 36415; 36600; 71260; 80048; 80053; 81001; 82803; 83605; 83735; 83880; 84484; 85007; 85027; 87040; 87086; 93005; 96366; 96361; 96365; 96368; 99285-25; J0456; J0692; J0696; J1650; J1940; J2060; J2270; J3370; J3475; J7030; J7050